=== PATIENT | female | born 1945 | race Caucasian/White ===

== ENCOUNTER 2018-03-03 10:34 | Inpatient (IN) | payer MEDICARE ==
--- NOTE | 2018-03-03 11:10 | ED Physician Chart ---
ED Chief Complaint/HPI - Patient Information Date Seen:: 03/03/18 Time Seen:: 10:45 Chief Complaint:: Leg Pain History of Present Illness:: onset x 3 days of LE pain, erythema, and swelling; no report of trauma, H/As, S/ T, neck pain, cough, C/P, SOB, Abd. Pain, A/N/V/D/C, fever, chills, or urinary s /s Historian:: Patient, EMS Review:: Nurse's Note Reviewed, Old Chart Reviewed, EMS run form Reviewed ED Review of Systems - Review of Systems General/Constitutional: No fever, No chills, No weight loss, No weakness, No diaphoresis, No edema, No loss of appetite Skin: Skin lesions, Rash, No bruising Head: No headache, No light-headedness Eyes: No loss of vision, No pain, No diplopia ENT: No earache, No nasal drainage, No sore throat, No tinnitus Neck: No neck pain, No swelling, No thyromegaly, No stiffness, No mass noted Cardio Vascular: No chest pain, No palpitations, No PND, No orthopnea, No edema Pulmonary: SOB, Cough, No sputum, Wheezing GI: No nausea, No vomiting, No diarrhea, No pain, No melena, No hematochezia, No constipation, No hematemesis G/U: No dysuria, No frequency, No hematuria, No nacturia Cytopathologist: No vaginal discharge, No abnormal vaginal bleed, No contraction Musculoskeletal: No bone or joint pain, No back pain, No muscle pain Endocrine: No polyuria, No polydipsia Psychiatric: No prior psych history, No depression, No anxiety, No suicidal ideation, No homicidal ideation, No auditory hallucination, No visual hallucination Hematopoietic: No bruising, No lymphadenopathy Allergic/Immuno: No urticaria, No angioedema Neurological: No syncope, No focal symptoms, No weakness, No paresthesia, No headache, No seizure, No dizziness, Confusion, No vertigo ED Past Medical History - Past Medical History Obtainable: Yes Past Medical History: HTN, Asthma/COPD, Dyslipidemia, ESRD, Dementia Family History: HTN Social History: Non Smoker, No Alcohol, No Drug Use, Single, Care Facility Surgical History: None Psychiatricy History: Dementia Medication: Reviewed Family Medical History - Family Member Mother History Unknown: Yes ED Physical Exam - Physical Examination General/Constitutional: Awake, Well-developed, well-nourished, Alert, No distress, GCS 15, Non-toxic appearing, Ambulatory Head: Atraumatic Eyes: Lids, conjuctiva normal, PERRL, EOMI Skin: Nl inspection, No rash, No skin lesions, No ecchymosis, Well hydrated, No lymphadenopathy Other Skin comments:: + LE Cellulitis ENMT: External ears, nose nl, Nasal exam nl, Lips, teeth, gums nl Neck: Nontender, Full ROM w/o pain, No JVD, No nuchal rigidity, No bruit, No mass, No stridor Respiratory: Nl effort/Exclusion, Clear to Auscultation, No Wheeze/Rhonchi/Rales Cardio Vascular: RRR, No murmur, gallop, rubs, NL S1 S2 GI: No tenderness/rebounding/guarding, No organomegaly, No hernia, Normal BS's, Nondistended, No mass/bruits, No McBurney tenderness : No CVA tenderness Extremities: No tenderness or effusion, Full ROM, normal strength in all extremities, No edema, Normal digits & nails Neuro/Psych: Alert/oriented, DTR's symmetric, Normal sensory exam, Normal motor strength, Judgement/insight normal, Mood normal, Normal gait, No focal deficits Misc: Normal back, No paraspinal tenderness ED Labs/Radiology/EKG Results - Lab Results Comments:: Reviewed - Radiology Results Comments:: NAD - EKG Interpretations EKG Time:: 11:13 Rate & Rhythm: 68; NSR Comments:: non-specific st-t changes ED Septic Shock - . Is Septic Shock (SBP<90, OR Lactate>4 mmol\L) present?: No ED Reassessment (Disposition) - Reassessment Reassessment Condition:: Improved - Diagnosis Diagnosis:: Dx: Cellulitis; Sepsis; Hypokalemia; Lactic Acidosis; - Aftercare/Follow up Instructions Aftercare/Follow-Up Instructions:: Counseled pt regarding lab results/diagnosis & need follow up, Counseled pt & family regarding lab results/diagnosis & need follow up - Patient Disposition Discharge/Transfer:: Acute Care w/in this hosp Accepting Physician:: Dr. Goldberg Time Called:: 1245 Time Responded:: 12:45 Admitted to:: Telemetry Spoke to:: Dr. Goldberg Admitting Medical Physician:: Dr. Goldberg Condition at Disposition:: Stable, Improved
[2018-03-03] MEDS ORDERED: cefTRIAXone 1 GM in Sodium Chloride 0.9% 50 ML IV ONE (11:12)
[2018-03-03 11:21] LABS: HEMATOCRIT 29.7 % (41.0-60); HEMOGLOBIN 9.9 gm/dL (12-16); MEAN CELL VOLUME 82.3 fl (81-100); MEAN CORPUSCULAR HEMOGLOBIN 27.4 pg (27.0-31.0); MEAN CORPUSCULAR HGB CONC 33.3 pg (28.0-36.0); MEAN PLATELET VOLUME 7.8 fl; PLATELET COUNT 363 Th/cmm (150-400); RED BLOOD COUNT 3.61 Mil/cmm (3.80-5.20); RED CELL DISTRIBUTION WIDTH 14.6 % (11.5-20.0)
[2018-03-03 11:39] LABS: ALB/GLOB RATIO 0.9 (1.0-1.8); ALBUMIN 3.7 gm/dL (3.7-5.3); ALKALINE PHOSPHATASE 126 U/L (34-104); ANION GAP 17.1 (7.0-16.0); BILIRUBIN,TOTAL 0.3 mg/dL (0.3-1.0); BUN - UREA NITROGEN 57 mg/dL (7-25); CALCIUM SERUM 9.3 mg/dL (8.6-10.3); CARBON DIOXIDE 29.6 mEq/L (21.0-31.0); CHLORIDE 91 mEq/L (98-107); CREATININE - SERUM 2.3 mg/dL (0.6-1.2); CREATININE KINASE 60 U/L (30-223); GLUCOSE 93 mg/dL (70-105); SGOT 14 U/L (13-39); SGPT/ALT 10 U/L (7-52); SODIUM SERUM 135 mEq/L (136-145); TOTAL PROTEIN,SERUM 7.7 gm/dL (6.0-8.3)
--- NOTE | 2018-03-03 11:49 | Diagnostic Imaging Report ---
CHEST X-RAY: AP view INDICATION: pain COMPARISON: None FINDINGS: Increased interstitial lung markings are seen particularly of the lung bases. No focal consolidation or effusions. Cardiomegaly is noted with atherosclerosis. Degenerative changes of the spine are noted. IMPRESSION: Increased interstitial lung markings, particularly of the lung bases. There is probable atelectasis of the lung bases. Faint infiltrate of the left lung base is considered less likely, however, correlation is to be made clinically. Cardiomegaly and atherosclerotic vascular disease.
[2018-03-03 11:50] LABS: POTASSIUM SERUM 2.7 mEq/L (3.5-5.1)
[2018-03-03] MEDS ORDERED: Potassium Chloride 20 mEq ER Tab PO ONE ×4 (11:53→17:00)
[2018-03-03 12:01] LABS: INR 0.9 (0.5-1.4); PROTHROMBIN TIME (TEST) 9.4 SECONDS (9.5-11.5)
[2018-03-03 12:13] LABS: BAND NEUTROPHILE 0 % (0-10); EOSINOPHIL 3 % (0-5); LYMPHOCYTE 6 % (20-50); MONOCYTE 4 % (2-10); NEUTROPHILS 87 % (40-80)
--- NOTE | 2018-03-03 12:44 | Diagnostic Imaging Report ---
Bilateral lower extremity DVT study HISTORY: Pain COMPARISON: None Technique: Longitudinal and transverse sonographic images of the bilateral lower extremity veins were obtained with doppler analysis. FINDINGS: There is normal compressibility, augmentation and phasicity of the bilateral common femoral, superficial femoral, popliteal, and posterior tibial veins. The bilateral peroneal veins are not visualized. No thrombus is visualized. Bilateral calf edema is noted. IMPRESSION: The bilateral peroneal veins are not visualized. No evidence of thrombus within the bilateral lower extremity veins. Bilateral calf edema.
[2018-03-03 12:56] LABS: TROP I 0.01 ng/mL (0.01-0.05)
[2018-03-03] MEDS ORDERED: Sodium Chloride 0.9% 1,000 ML IV ONE (12:57)
[2018-03-03] MEDS ORDERED: ACETAMINOPHEN PO PRN (15:50)
[2018-03-03 16:06] LABS: URINE SOURCE MIDSTREAM
[2018-03-03 16:08] LABS: URINE BILIRUBIN NEGATIVE (NEGATIVE); URINE BLOOD NEGATIVE (NEGATIVE); URINE GLUCOSE (UA) NEGATIVE (NEGATIVE); URINE KETONE NEGATIVE (NEGATIVE); URINE LEUKOCYTE ESTERASE NEGATIVE (NEGATIVE); URINE MICROSCOPIC INDICATED? YES; URINE NITRATE POSITIVE (NEGATIVE); URINE PROTEIN NEGATIVE (NEGATIVE); URINE UROBILINOGEN 0.2 E.U./dL (0.2 - 1.0)
[2018-03-03 16:22] LABS: URINE CLARITY HAZY (CLEAR); URINE COLOR YELLOW
[2018-03-03 16:45] LABS: URINE BACTERIA 3+ /hpf (NONE SEEN); URINE EPITHELIAL CELLS FEW /lpf (FEW); URINE RBC 0-2 /hpf (0-5)
[2018-03-03] MEDS: Acetaminophen 500 MG TAB PO PRN (17:07)
--- NOTE | 2018-03-03 17:09 | History & Physical ---
ADMIT DATE: 03/03/2018 HISTORY OF PRESENT ILLNESS: The patient is a 72-year-old female patient. The patient came to the Emergency Room complaining of leg pain for the last 3 days complaining of erythema and swelling in both legs, found to have cellulitis, was admitted. The patient complained of no cough, no fever, no chills, no rigors. REVIEW OF SYSTEMS: Otherwise, negative. PAST MEDICAL HISTORY: Asthma, history of hypertension, hyperlipidemia, end-stage renal disease, and dementia. PHYSICAL EXAMINATION: GENERAL: Awake, alert, oriented, not in acute distress. VITAL SIGNS: Noted. HEAD: Normal. ENT: Normal. NECK: Supple, nontender. LUNGS: Clear. CARDIOVASCULAR SYSTEM: S1, S2 heard. ABDOMEN: Soft. EXTREMITIES: Left lower extremity edema, swelling, erythema was noted. CENTRAL NERVOUS SYSTEM: Grossly normal. LABORATORY DATA: EKG normal sinus rhythm, no acute changes. Her potassium was very low at 2.7. DIAGNOSES: Severe hypokalemia, cellulitis, sepsis, lactic acidosis, history of hypertension, history of asthma, chronic obstructive pulmonary disease, hyperlipidemia, chronic renal failure, dementia, was made. The patient is being admitted. WBC was 13.5, potassium was 2.7. Lactic acid was 2.0, BUN and creatinine was 57 and 2.3 and the patient again admitted for cellulitis, acute on chronic renal failure, sepsis, lactic acidosis, history of hypertension, history of hyperlipidemia, and history of dementia. [facility]# [id number]
[2018-03-03] MEDS: cefTRIAXone 1 GM in Sodium Chloride 0.9% 50 ML IV SCH (17:13)
[2018-03-03 18:04] VITALS: BP 110/45
[2018-03-03] MEDS: Morphine Sulfate 2 mg/mL 1mL Syr IVP PRN (20:15)
[2018-03-03] MEDS ORDERED: D5-0.45NS 1,000 ML IV SCH (22:35)
[2018-03-04] MEDS: Morphine Sulfate 2 mg/mL 1mL Syr IVP PRN ×4 (01:04→21:26)
--- NOTE | 2018-03-04 04:33 | Consultation ---
DATE OF CONSULTATION: 03/03/2018 INFECTIOUS DISEASE CONSULTATION REFERRING PHYSICIAN: Dr. Goldberg. REASON FOR CONSULTATION: Bilateral leg cellulitis. HISTORY OF PRESENT ILLNESS: The patient is 72-year-old female with a past medical history of obesity, hypertension, COPD, asthma, dyslipidemia, ESRD, and dementia, presented to the ER for erythema, swelling, and dry skin of both lower extremities, worse on the left side with some superficial ulceration with a scab formation for last 3 days. The patient denies any fever or chills. The patient denies any history of DVT. On initial evaluation, the patient's temperature was 97.5 degree Fahrenheit and WBC count was 13,000. ID consult was called for further antibiotic management. Meanwhile, the patient was started on Rocephin. PAST MEDICAL HISTORY: As mentioned above. Obesity, hypertension, asthma, COPD, dyslipidemia, CKD, and dementia. ALLERGIES: NKDA. MEDICATIONS: As per medication reconciliation sheet. Antibiotic welsh, the patient is receiving Rocephin. SOCIAL HISTORY: The patient lives in a nursing facility, is single. No history of smoking, alcohol, or drug use. PAST SURGICAL HISTORY: None. PSYCHIATRIC HISTORY: Dementia. REVIEW OF SYSTEMS: GENERAL: The patient denies any fever or chills. The patient denies any generalized weakness or diaphoresis. HEENT: The patient denies any diplopia, photophobia, sore throat, or congestion. RESPIRATORY: The patient denies any cough or shortness of breath. CARDIOVASCULAR: No chest pain or palpitation. GASTROINTESTINAL: No nausea, no vomiting, no diarrhea, or constipation. GENITOURINARY: No dysuria. NEUROLOGIC: No headache, no dizziness, no focal weakness. MUSCULOSKELETAL: The patient complains of bilateral lower extremity pains. SKIN: The patient has redness and superficial ulceration and scab formation of both lower extremities, worse on the left side. PHYSICAL EXAMINATION: GENERAL: The patient is obese, not in acute distress with a BMI of 44.7 kg. VITAL SIGNS: Temperature is 98.6, pulse 83, respiration 18, and blood pressure 110/51. HEENT: Head is normocephalic, atraumatic. Oral cavity moist, pink tongue. Eyes: No pallor, no icterus. PERRLA, EOMI. NECK: Supple, no JVD, no carotid bruit. Trachea in midline. CHEST: Equal breath sounds. No crackles or wheezing. HEART: S1, S2 within normal limit. Regular rhythm. No murmur, no gallop. ABDOMEN: Soft, nontender, nondistended. Bowel sounds present. EXTREMITIES: No cyanosis, no clubbing. The patient has dry skin of both lower extremities, ulceration with a scab formation of left lower extremity. The patient also has tenderness and erythema on both legs. No postnasal discharge. CENTRAL NERVOUS SYSTEM: Alert, awake, and oriented x 3. No focal weakness. LABORATORY DATA: Current lab shows WBC count is 13,000, hemoglobin is 9.9, hematocrit 29.7, platelets 363,000, neutrophils 87%. Sodium is 135, potassium 2.7, chloride 91, bicarbonate is 29.6, BUN is 57, creatinine 2.3, glucose is 93. Lactic acid was 2.2. Urinalysis showed positive nitrite and 3+ bacteria, wbc's 2-5. Bilateral leg ultrasound was negative for any DVT. Chest ____ increased interstitial markings particularly of the lung bases. There is atelectasis, faint infiltrate of the left lung base is considered less likely. IMPRESSION: 1. Right leg cellulitis. 2. Left leg cellulitis. 3. Left leg wound. 4. Dry skin, dermatitis. 5.. Leukocytosis. 6. Urinary tract infection. 7. Hypokalemia. 8. Chronic kidney disease, stage 4. 9. Obesity, she has sleep apnea. 10. Chronic obstructive pulmonary disease, asthma. 11. Hypertension. 12. Dyslipidemia. 13. Dementia. 14. Anemia. 15. Lymphedema of both lower extremities. RECOMMENDATION AND PLAN: We will continue Rocephin at this time. Apply Lac-Hydrin ointment to both lower extremities. Thank you, Dr. Goldberg, for involving me in taking care of this patient. JOB# [id number]
[2018-03-04 05:33] LABS: % BASOPHILS 0.7 % (0.0-2.0); BASOPHILE ABSOLUTE 0.1 Th/cumm (0-0.2); RED BLOOD COUNT 3.49 Mil/cmm (3.80-5.20)
[2018-03-04 05:40] LABS: % EOSINOPHILS 4.9 % (0.0-5.0); % LYMPHOCYTES 5.5 % (20.0-50.0); % MONOCYTES 5.1 % (2.0-10.0); % NEUTROPHILS 83.8 % (40.0-80.0); EOSINOPHILE ABSOLUTE 0.5 Th/cmm (0.1-0.4); HEMATOCRIT 28.6 % (41.0-60); HEMOGLOBIN 9.6 gm/dL (12-16); LYMPHOCYTE ABSOLUTE 0.6 Th/cmm (1.5-3.0); MEAN CORPUSCULAR HEMOGLOBIN 27.6 pg (27.0-31.0); MEAN CORPUSCULAR HGB CONC 33.6 pg (28.0-36.0); MONOCYTE ABSOLUTE 0.6 Th/cmm (0.3-1.0); NEUTROPHILE ABSOLUTE 9.4 Th/cmm (1.8-8.0); PLATELET COUNT 339 Th/cmm (150-400); RED CELL DISTRIBUTION WIDTH 14.8 % (11.5-20.0); WHITE BLOOD COUNT 11.2 Th/cmm (4.8-10.8)
[2018-03-04 06:04] LABS: ANION GAP 14.9 (7.0-16.0); BUN - UREA NITROGEN 55 mg/dL (7-25); CALCIUM SERUM 9.1 mg/dL (8.6-10.3); CARBON DIOXIDE 29.1 mEq/L (21.0-31.0); CHLORIDE 96 mEq/L (98-107); CREATININE - SERUM 2.2 mg/dL (0.6-1.2); GLUCOSE 115 mg/dL (70-105); SODIUM SERUM 137 mEq/L (136-145)
[2018-03-04] MEDS ORDERED: Potassium Chloride 20 mEq ER Tab PO ONE (06:33)
[2018-03-04 07:22] LABS: EOSINOPHIL 7 % (0-5); LYMPHOCYTE 3 % (20-50); MONOCYTE 8 % (2-10); NEUTROPHILS 82 % (40-80); PLATELET ESTIMATE ADEQUATE (NORMAL)
[2018-03-04] MEDS ORDERED: Influenza Vaccine (65 yr & older) 0.5 ml Syr IM ONE (09:00)
[2018-03-04] MEDS: Diltiazem CD 120 mg 24H PO SCH (09:01)
--- NOTE | 2018-03-04 11:25 | Internal Medicine Prog Note ---
Internal Medicine Subjective - Subjective Service Date: 03/04/18 Patient seen and examined:: with staff Patient is:: awake, verbal Per staff patient has:: tolerating meds Internal Medicine Objective - Results Result Diagrams: 03/04/18 05:05 03/04/18 05:05 Recent Labs: Laboratory Last Values WBC 11.2 Th/cmm (4.8-10.8) H 03/04/18 05:05 RBC 3.49 Mil/cmm (3.80-5.20) L 03/04/18 05:05 Hgb 9.6 gm/dL (12-16) L 03/04/18 05:05 Hct 28.6 % (41.0-60) L 03/04/18 05:05 MCV 82.0 fl (81-100) 03/04/18 05:05 MCH 27.6 pg (27.0-31.0) 03/04/18 05:05 MCHC Differential 33.6 pg (28.0-36.0) 03/04/18 05:05 RDW 14.8 % (11.5-20.0) 03/04/18 05:05 Plt Count 339 Th/cmm (150-400) 03/04/18 05:05 MPV 8.0 fl 03/04/18 05:05 Add Manual Diff YES 03/03/18 11:10 Neutrophils % 83.8 % (40.0-80.0) H 03/04/18 05:05 Band Neutrophils % 0 % (0-10) 03/03/18 11:10 Lymphocytes % 5.5 % (20.0-50.0) L 03/04/18 05:05 Monocytes % 5.1 % (2.0-10.0) 03/04/18 05:05 Eosinophils % 4.9 % (0.0-5.0) 03/04/18 05:05 Basophils % 0.7 % (0.0-2.0) 03/04/18 05:05 Neutrophils (Manual) 82 % (40-80) H 03/04/18 05:05 Lymphocytes 3 % (20-50) L 03/04/18 05:05 Monocytes 8 % (2-10) 03/04/18 05:05 Eosinophils 7 % (0-5) H 03/04/18 05:05 Platelet Estimate ADEQUATE (NORMAL) 03/04/18 05:05 PT 9.4 SECONDS (9.5-11.5) L 03/03/18 11:10 INR 0.90 (0.5-1.4) 03/03/18 11:10 PTT (Actin FS) 28.4 SECONDS (26.0-38.0) 03/03/18 11:10 Sodium 137 mEq/L (136-145) 03/04/18 05:05 Potassium 3.0 mEq/L (3.5-5.1) L 03/04/18 05:05 Chloride 96 mEq/L (98-107) L 03/04/18 05:05 Carbon Dioxide 29.1 mEq/L (21.0-31.0) 03/04/18 05:05 Anion Gap 14.9 (7.0-16.0) 03/04/18 05:05 BUN 55 mg/dL (7-25) H 03/04/18 05:05 Creatinine 2.2 mg/dL (0.6-1.2) H 03/04/18 05:05 Est GFR ( Amer) TNP 03/04/18 05:05 Est GFR (Non-Af Amer) TNP 03/04/18 05:05 BUN/Creatinine Ratio 25.0 03/04/18 05:05 Glucose 115 mg/dL (70-105) H 03/04/18 05:05 Whole Bld Lactic Acid 1.05 mmol/L (0.60-1.99) 03/03/18 13:20 Calcium 9.1 mg/dL (8.6-10.3) 03/04/18 05:05 Total Bilirubin 0.3 mg/dL (0.3-1.0) 03/03/18 11:10 AST 14 U/L (13-39) 03/03/18 11:10 ALT 10 U/L (7-52) 03/03/18 11:10 Alkaline Phosphatase 126 U/L (34-104) H 03/03/18 11:10 Creatine Kinase 60 U/L (30-223) 03/03/18 11:10 Troponin I 0.01 ng/mL (0.01-0.05) 03/03/18 11:10 Total Protein 7.7 gm/dL (6.0-8.3) 03/03/18 11:10 Albumin 3.7 gm/dL (3.7-5.3) 03/03/18 11:10 Globulin 4.0 gm/dL 03/03/18 11:10 Albumin/Globulin Ratio 0.9 (1.0-1.8) L 03/03/18 11:10 Urine Source MIDSTREAM 03/03/18 16:00 Urine Color YELLOW 03/03/18 16:00 Urine Clarity HAZY (CLEAR) 03/03/18 16:00 Urine pH 6.0 (4.6 - 8.0) 03/03/18 16:00 Ur Specific [place] 1.015 (1.005-1.030) 03/03/18 16:00 Urine Protein NEGATIVE mg/dL (NEGATIVE) 03/03/18 16:00 Urine Glucose (UA) NEGATIVE mg/dL (NEGATIVE) 03/03/18 16:00 Urine Ketones NEGATIVE mg/dL (NEGATIVE) 03/03/18 16:00 Urine Blood NEGATIVE (NEGATIVE) 03/03/18 16:00 Urine Nitrate POSITIVE (NEGATIVE) H 03/03/18 16:00 Urine Bilirubin NEGATIVE (NEGATIVE) 03/03/18 16:00 Urine Urobilinogen 0.2 E.U./dL (0.2 - 1.0) 03/03/18 16:00 Ur Leukocyte Esterase NEGATIVE (NEGATIVE) 03/03/18 16:00 Urine RBC 0-2 /hpf (0-5) 03/03/18 16:00 Urine WBC 2-5 /hpf (0-5) 03/03/18 16:00 Ur Epithelial Cells FEW /lpf (FEW) 03/03/18 16:00 Urine Bacteria 3+ /hpf (NONE SEEN) H 03/03/18 16:00 - Physical Exam Vitals and I&O: Vital Signs Temp 97.5 F 03/04/18 08:00 Pulse 99 03/04/18 09:01 Resp 20 03/04/18 08:00 BP 115/52 03/04/18 08:00 Pulse Ox 100 03/04/18 08:00 Intake & Output 03/03/18 03/04/18 03/04/18 18:59 06:59 18:59 Intake Total 300 400 Balance 300 400 Weight (lbs) 229 lb 229 lb 229 lb Intake: Oral 300 400 Other: # Voids 2 2 3 # Bowel Movements 1 0 Weight Source Bedscale Bedscale Bedscale Active Medications: Current Medications Acetaminophen (Tylenol Extra Strength) 1,000 mg PO Q6HR PRN PRN Reason: Pain or Fever >101 Stop: 05/02/18 15:49 Last Admin: 03/03/18 17:07 Dose: 1,000 mg Diltiazem HCl (Cardizem Cd) 240 mg PO DAILY [facility] Stop: 05/03/18 08:59 Last Admin: 03/04/18 09:01 Dose: 240 mg Ceftriaxone Sodium 1 gm/ (Sodium Chloride) 50 mls @ 100 mls/hr IV Q24HR [facility] Stop: 05/02/18 16:59 Last Admin: 03/03/18 17:13 Dose: Not Given Dextrose/Sodium Chloride (D5-0.45ns) 1,000 mls @ 75 mls/hr IV .[id number] [facility] Stop: 05/02/18 22:34 Last Admin: 03/03/18 23:18 Dose: 75 mls/hr Lactic Acid (Lac-Hydrin Cream) 1 appl TP BID [facility] Stop: 05/03/18 08:59 Morphine Sulfate (Morphine) 1 mg IVP Q4HR PRN PRN Reason: Pain (Severe) 8-10 Stop: 05/02/18 17:32 Last Admin: 03/04/18 06:52 Dose: 1 mg General: weak, congested, alert HEENT: NC/AT Neck: Supple Lungs: rales Cardiovascular: RRR, Normal S1, Normal S2, without murmur Abdomen: soft, non-tender, non-distended Extremities: excoriation, other (ble nonpitting edema with redness and warmth) Internal Medicine Assmt/Plan - Assessment Assessment: severe hypokalemia ble cellulitis sepsis htn asthma copd hdl chronic renal failure dementia - Plan Plan: keep IVF tko as patient feels sob monitor electrolytes closely continue ivabx as per id continue current plan of care
[2018-03-04] MEDS ORDERED: D5 IV SCH (11:30)
[2018-03-04] MEDS ORDERED: [UNRECOGNIZED DRUG - OTHER] IV SCH (11:30)
[2018-03-04] MEDS: Ammonium Lactate Cream 140 gm Tube TP SCH ×2 (11:55→17:30)
[2018-03-04] MEDS ORDERED: D5-0.45NS 1,000 ML IV SCH (12:00)
[2018-03-04] MEDS: Venelex 60gm Tube TP SCH (13:03)
--- NOTE | 2018-03-04 14:35 | Infectious Disease Prog Note ---
Infectious Disease Subjective - Review of Systems Service Date: 03/04/18 Subjective: There is no new change, no fever, Infectious Disease Objective - Results Result Diagrams: 03/04/18 05:05 03/04/18 05:05 Recent Labs: Laboratory Last Values WBC 11.2 Th/cmm (4.8-10.8) H 03/04/18 05:05 RBC 3.49 Mil/cmm (3.80-5.20) L 03/04/18 05:05 Hgb 9.6 gm/dL (12-16) L 03/04/18 05:05 Hct 28.6 % (41.0-60) L 03/04/18 05:05 MCV 82.0 fl (81-100) 03/04/18 05:05 MCH 27.6 pg (27.0-31.0) 03/04/18 05:05 MCHC Differential 33.6 pg (28.0-36.0) 03/04/18 05:05 RDW 14.8 % (11.5-20.0) 03/04/18 05:05 Plt Count 339 Th/cmm (150-400) 03/04/18 05:05 MPV 8.0 fl 03/04/18 05:05 Add Manual Diff YES 03/03/18 11:10 Neutrophils % 83.8 % (40.0-80.0) H 03/04/18 05:05 Band Neutrophils % 0 % (0-10) 03/03/18 11:10 Lymphocytes % 5.5 % (20.0-50.0) L 03/04/18 05:05 Monocytes % 5.1 % (2.0-10.0) 03/04/18 05:05 Eosinophils % 4.9 % (0.0-5.0) 03/04/18 05:05 Basophils % 0.7 % (0.0-2.0) 03/04/18 05:05 Neutrophils (Manual) 82 % (40-80) H 03/04/18 05:05 Lymphocytes 3 % (20-50) L 03/04/18 05:05 Monocytes 8 % (2-10) 03/04/18 05:05 Eosinophils 7 % (0-5) H 03/04/18 05:05 Platelet Estimate ADEQUATE (NORMAL) 03/04/18 05:05 PT 9.4 SECONDS (9.5-11.5) L 03/03/18 11:10 INR 0.90 (0.5-1.4) 03/03/18 11:10 PTT (Actin FS) 28.4 SECONDS (26.0-38.0) 03/03/18 11:10 Sodium 137 mEq/L (136-145) 03/04/18 05:05 Potassium 3.0 mEq/L (3.5-5.1) L 03/04/18 05:05 Chloride 96 mEq/L (98-107) L 03/04/18 05:05 Carbon Dioxide 29.1 mEq/L (21.0-31.0) 03/04/18 05:05 Anion Gap 14.9 (7.0-16.0) 03/04/18 05:05 BUN 55 mg/dL (7-25) H 03/04/18 05:05 Creatinine 2.2 mg/dL (0.6-1.2) H 03/04/18 05:05 Est GFR ( Amer) TNP 03/04/18 05:05 Est GFR (Non-Af Amer) TNP 03/04/18 05:05 BUN/Creatinine Ratio 25.0 03/04/18 05:05 Glucose 115 mg/dL (70-105) H 03/04/18 05:05 Whole Bld Lactic Acid 1.05 mmol/L (0.60-1.99) 03/03/18 13:20 Calcium 9.1 mg/dL (8.6-10.3) 03/04/18 05:05 Total Bilirubin 0.3 mg/dL (0.3-1.0) 03/03/18 11:10 AST 14 U/L (13-39) 03/03/18 11:10 ALT 10 U/L (7-52) 03/03/18 11:10 Alkaline Phosphatase 126 U/L (34-104) H 03/03/18 11:10 Creatine Kinase 60 U/L (30-223) 03/03/18 11:10 Troponin I 0.01 ng/mL (0.01-0.05) 03/03/18 11:10 Total Protein 7.7 gm/dL (6.0-8.3) 03/03/18 11:10 Albumin 3.7 gm/dL (3.7-5.3) 03/03/18 11:10 Globulin 4.0 gm/dL 03/03/18 11:10 Albumin/Globulin Ratio 0.9 (1.0-1.8) L 03/03/18 11:10 Urine Source MIDSTREAM 03/03/18 16:00 Urine Color YELLOW 03/03/18 16:00 Urine Clarity HAZY (CLEAR) 03/03/18 16:00 Urine pH 6.0 (4.6 - 8.0) 03/03/18 16:00 Ur Specific [place] 1.015 (1.005-1.030) 03/03/18 16:00 Urine Protein NEGATIVE mg/dL (NEGATIVE) 03/03/18 16:00 Urine Glucose (UA) NEGATIVE mg/dL (NEGATIVE) 03/03/18 16:00 Urine Ketones NEGATIVE mg/dL (NEGATIVE) 03/03/18 16:00 Urine Blood NEGATIVE (NEGATIVE) 03/03/18 16:00 Urine Nitrate POSITIVE (NEGATIVE) H 03/03/18 16:00 Urine Bilirubin NEGATIVE (NEGATIVE) 03/03/18 16:00 Urine Urobilinogen 0.2 E.U./dL (0.2 - 1.0) 03/03/18 16:00 Ur Leukocyte Esterase NEGATIVE (NEGATIVE) 03/03/18 16:00 Urine RBC 0-2 /hpf (0-5) 03/03/18 16:00 Urine WBC 2-5 /hpf (0-5) 03/03/18 16:00 Ur Epithelial Cells FEW /lpf (FEW) 03/03/18 16:00 Urine Bacteria 3+ /hpf (NONE SEEN) H 03/03/18 16:00 - Physical Exam Vitals and I&O: Vital Signs Temp 97.7 F 03/04/18 12:00 Pulse 106 03/04/18 12:00 Resp 20 03/04/18 12:00 BP 106/57 03/04/18 12:00 Pulse Ox 100 03/04/18 12:00 Intake & Output 03/03/18 03/04/18 03/04/18 18:59 06:59 18:59 Intake Total 300 400 Balance 300 400 Weight (lbs) 103.873 kg 103.873 kg 103.873 kg Intake: Oral 300 400 Other: # Voids 2 2 3 # Bowel Movements 1 0 Weight Source Bedscale Bedscale Bedscale Active Medications: Current Medications Acetaminophen (Tylenol Extra Strength) 1,000 mg PO Q6HR PRN PRN Reason: Pain or Fever >101 Stop: 05/02/18 15:49 Last Admin: 03/03/18 17:07 Dose: 1,000 mg Diltiazem HCl (Cardizem Cd) 240 mg PO DAILY [facility] Stop: 05/03/18 08:59 Last Admin: 03/04/18 09:01 Dose: 240 mg Ceftriaxone Sodium 1 gm/ (Sodium Chloride) 50 mls @ 100 mls/hr IV Q24HR [facility] Stop: 05/02/18 16:59 Last Admin: 03/03/18 17:13 Dose: Not Given Dextrose/Sodium Chloride (D5-0.45ns) 1,000 mls @ 10 mls/hr IV .Q24H [facility] Stop: 05/03/18 11:29 Lactic Acid (Lac-Hydrin Cream) 1 appl TP BID [facility] Stop: 05/03/18 08:59 Last Admin: 03/04/18 11:55 Dose: 1 appl Morphine Sulfate (Morphine) 1 mg IVP Q4HR PRN PRN Reason: Pain (Severe) 8-10 Stop: 05/02/18 17:32 Last Admin: 03/04/18 11:55 Dose: 1 mg General: no acute distress, well developed, well nourished HEENT: atraumatic, normocephalic, PERRLA Neck: supple, no thyromegaly Cardiovascular: S1S2, regular Lungs: clear to auscultation bilaterally, clear to percussion Abdomen: soft, no tender, no distended, no mass Extremities: edema, other (erythema and tenderness of the legs), no cyanosis, no clubbing Neurological: no awake, no alert Skin: intact Infectious Disease Assmt/Plan - Assessment Assessment: 1. Right leg cellulitis. 2. Left leg cellulitis. 3. Left leg wound. 4. Dry skin, dermatitis. 5.. Leukocytosis. 6. Urinary tract infection. 7. Hypokalemia. 8. Chronic kidney disease, stage 4. 9. Obesity, she has sleep apnea. 10. Chronic obstructive pulmonary disease, asthma. 11. Hypertension. 12. Dyslipidemia. 13. Dementia. 14. Anemia. 15. Lymphedema of both lower extremities. - Plan Plan: continue Rocephin at this time. Apply Lac-Hydrin ointment to both lower extremities.
[2018-03-04] MEDS: Acetaminophen 500 MG TAB PO PRN (17:29)
[2018-03-04] MEDS: cefTRIAXone 1 GM in Sodium Chloride 0.9% 50 ML IV SCH (18:42)
[2018-03-05] MEDS: Morphine Sulfate 2 mg/mL 1mL Syr IVP PRN ×4 (01:06→21:11)
[2018-03-05] MEDS: Venelex 60gm Tube TP SCH ×2 (01:10→13:04)
[2018-03-05 06:26] LABS: HEMATOCRIT 28.2 % (41.0-60); HEMOGLOBIN 9.4 gm/dL (12-16); MEAN CORPUSCULAR HEMOGLOBIN 27.3 pg (27.0-31.0); MEAN CORPUSCULAR HGB CONC 33.3 pg (28.0-36.0); PLATELET COUNT 309 Th/cmm (150-400); RED BLOOD COUNT 3.44 Mil/cmm (3.80-5.20); RED CELL DISTRIBUTION WIDTH 14.9 % (11.5-20.0)
[2018-03-05 06:53] LABS: ANION GAP 15.4 (7.0-16.0); BUN - UREA NITROGEN 51 mg/dL (7-25); CALCIUM SERUM 9.1 mg/dL (8.6-10.3); CARBON DIOXIDE 25.3 mEq/L (21.0-31.0); CHLORIDE 98 mEq/L (98-107); CREATININE - SERUM 2.1 mg/dL (0.6-1.2); GLUCOSE 128 mg/dL (70-105); POTASSIUM SERUM 3.7 mEq/L (3.5-5.1); SODIUM SERUM 135 mEq/L (136-145)
[2018-03-05 06:55] LABS: WHITE BLOOD COUNT 16.4 Th/cmm (4.8-10.8)
[2018-03-05 07:09] LABS: BAND NEUTROPHILE 1 % (0-10); BASOPHIL 0 % (0-3); EOSINOPHIL 6 % (0-5); LYMPHOCYTE 7 % (20-50); MONOCYTE 4 % (2-10); NEUTROPHILS 82 % (40-80)
[2018-03-05] MEDS: Diltiazem CD 120 mg 24H PO SCH (08:40)
--- NOTE | 2018-03-05 12:36 | Diagnostic Imaging Report ---
Bilateral lower extremity Doppler arterial ultrasound exam HISTORY: Swelling, cellulitis Sonographic sector images were obtained through the arterial systems of both legs. Associated Doppler data was obtained. The exam of the right leg demonstrates biphasic waveforms within the common femoral and superficial femoral arteries. Abnormal monophasic waveforms are noted within the right popliteal, anterior tibial, posterior tibial, and dorsalis pedis arteries. Elevated velocities noted throughout the arterial system. There is a decrease in the ankle-brachial index (0.89). Sonographic images demonstrate moderate to severe diffuse atherosclerotic changes. The left leg demonstrates abnormal monophasic waveforms throughout the arterial system. Generalized increase in velocities noted throughout the arterial system. The ankle-brachial index could not be obtained due to patient body habitus and leg swelling. Sonographic images demonstrate moderate to severe diffuse at this chronic changes. IMPRESSION: 1. Evidence of bilateral moderate to severe atherosclerotic changes. No focal occlusion is seen. If indicated, a CT angiographic study would provide additional detail.
[2018-03-05] MEDS: Ammonium Lactate Cream 140 gm Tube TP SCH ×2 (13:01→17:00)
--- NOTE | 2018-03-05 15:30 | Internal Medicine Prog Note ---
Internal Medicine Subjective - Subjective Patient seen and examined:: chart reviewed Patient is:: awake, verbal Patient Complaints of:: congestion Per staff patient has:: tolerating meds Internal Medicine Objective - Results Result Diagrams: 03/05/18 06:20 03/05/18 06:20 Recent Labs: Laboratory Last Values WBC 16.4 Th/cmm (4.8-10.8) H 03/05/18 06:20 RBC 3.44 Mil/cmm (3.80-5.20) L 03/05/18 06:20 Hgb 9.4 gm/dL (12-16) L 03/05/18 06:20 Hct 28.2 % (41.0-60) L 03/05/18 06:20 MCV 82.0 fl (81-100) 03/05/18 06:20 MCH 27.3 pg (27.0-31.0) 03/05/18 06:20 MCHC Differential 33.3 pg (28.0-36.0) 03/05/18 06:20 RDW 14.9 % (11.5-20.0) 03/05/18 06:20 Plt Count 309 Th/cmm (150-400) 03/05/18 06:20 MPV 8.0 fl 03/05/18 06:20 Add Manual Diff YES 03/05/18 06:20 Neutrophils % 83.8 % (40.0-80.0) H 03/04/18 05:05 Band Neutrophils % 1 % (0-10) 03/05/18 06:20 Lymphocytes % 5.5 % (20.0-50.0) L 03/04/18 05:05 Monocytes % 5.1 % (2.0-10.0) 03/04/18 05:05 Eosinophils % 4.9 % (0.0-5.0) 03/04/18 05:05 Basophils % 0.7 % (0.0-2.0) 03/04/18 05:05 Neutrophils (Manual) 82 % (40-80) H 03/05/18 06:20 Lymphocytes 7 % (20-50) L 03/05/18 06:20 Monocytes 4 % (2-10) 03/05/18 06:20 Eosinophils 6 % (0-5) H 03/05/18 06:20 Basophils 0 % (0-3) 03/05/18 06:20 Platelet Estimate ADEQUATE (NORMAL) 03/04/18 05:05 PT 9.4 SECONDS (9.5-11.5) L 03/03/18 11:10 INR 0.90 (0.5-1.4) 03/03/18 11:10 PTT (Actin FS) 28.4 SECONDS (26.0-38.0) 03/03/18 11:10 Sodium 135 mEq/L (136-145) L 03/05/18 06:20 Potassium 3.7 mEq/L (3.5-5.1) 03/05/18 06:20 Chloride 98 mEq/L (98-107) 03/05/18 06:20 Carbon Dioxide 25.3 mEq/L (21.0-31.0) 03/05/18 06:20 Anion Gap 15.4 (7.0-16.0) 03/05/18 06:20 BUN 51 mg/dL (7-25) H 03/05/18 06:20 Creatinine 2.1 mg/dL (0.6-1.2) H 03/05/18 06:20 Est GFR ( Amer) TNP 03/05/18 06:20 Est GFR (Non-Af Amer) TNP 03/05/18 06:20 BUN/Creatinine Ratio 24.3 03/05/18 06:20 Glucose 128 mg/dL (70-105) H 03/05/18 06:20 Whole Bld Lactic Acid 1.05 mmol/L (0.60-1.99) 03/03/18 13:20 Calcium 9.1 mg/dL (8.6-10.3) 03/05/18 06:20 Total Bilirubin 0.3 mg/dL (0.3-1.0) 03/03/18 11:10 AST 14 U/L (13-39) 03/03/18 11:10 ALT 10 U/L (7-52) 03/03/18 11:10 Alkaline Phosphatase 126 U/L (34-104) H 03/03/18 11:10 Creatine Kinase 60 U/L (30-223) 03/03/18 11:10 Troponin I 0.01 ng/mL (0.01-0.05) 03/03/18 11:10 Total Protein 7.7 gm/dL (6.0-8.3) 03/03/18 11:10 Albumin 3.7 gm/dL (3.7-5.3) 03/03/18 11:10 Globulin 4.0 gm/dL 03/03/18 11:10 Albumin/Globulin Ratio 0.9 (1.0-1.8) L 03/03/18 11:10 Urine Source MIDSTREAM 03/03/18 16:00 Urine Color YELLOW 03/03/18 16:00 Urine Clarity HAZY (CLEAR) 03/03/18 16:00 Urine pH 6.0 (4.6 - 8.0) 03/03/18 16:00 Ur Specific [place] 1.015 (1.005-1.030) 03/03/18 16:00 Urine Protein NEGATIVE mg/dL (NEGATIVE) 03/03/18 16:00 Urine Glucose (UA) NEGATIVE mg/dL (NEGATIVE) 03/03/18 16:00 Urine Ketones NEGATIVE mg/dL (NEGATIVE) 03/03/18 16:00 Urine Blood NEGATIVE (NEGATIVE) 03/03/18 16:00 Urine Nitrate POSITIVE (NEGATIVE) H 03/03/18 16:00 Urine Bilirubin NEGATIVE (NEGATIVE) 03/03/18 16:00 Urine Urobilinogen 0.2 E.U./dL (0.2 - 1.0) 03/03/18 16:00 Ur Leukocyte Esterase NEGATIVE (NEGATIVE) 03/03/18 16:00 Urine RBC 0-2 /hpf (0-5) 03/03/18 16:00 Urine WBC 2-5 /hpf (0-5) 03/03/18 16:00 Ur Epithelial Cells FEW /lpf (FEW) 03/03/18 16:00 Urine Bacteria 3+ /hpf (NONE SEEN) H 03/03/18 16:00 - Physical Exam Vitals and I&O: Vital Signs Temp 98.2 F 03/05/18 11:43 Pulse 76 03/05/18 11:43 Resp 19 03/05/18 11:43 BP 115/47 03/05/18 11:43 Pulse Ox 97 03/05/18 11:43 Intake & Output 03/04/18 03/05/18 03/05/18 18:59 06:59 18:59 Intake Total 400 1250 Output Total 850 Balance 400 400 Weight (lbs) 103.873 kg 103.873 kg Intake: Oral 400 1250 Output: Urine 850 Other: # Voids 3 3 Weight Source Bedscale Bedscale Active Medications: Current Medications Acetaminophen (Tylenol Extra Strength) 1,000 mg PO Q6HR PRN PRN Reason: Pain or Fever >101 Stop: 05/02/18 15:49 Last Admin: 03/04/18 17:29 Dose: 1,000 mg [place] Oil/[place]izen [place] Balsam/Trypsin (Venelex) 1 appl TP DAILY [facility] Stop: 05/03/18 15:59 Last Admin: 03/05/18 13:04 Dose: 1 appl Diltiazem HCl (Cardizem Cd) 240 mg PO DAILY [facility] Stop: 05/03/18 08:59 Last Admin: 03/05/18 08:40 Dose: 240 mg Ceftriaxone Sodium 1 gm/ (Sodium Chloride) 50 mls @ 100 mls/hr IV Q24HR [facility] Stop: 05/02/18 16:59 Last Admin: 03/04/18 18:42 Dose: Not Given Dextrose/Sodium Chloride (D5-0.45ns) 1,000 mls @ 10 mls/hr IV .Q24H [facility] Stop: 05/03/18 11:29 Lactic Acid (Lac-Hydrin Cream) 1 appl TP BID [facility] Stop: 05/03/18 08:59 Last Admin: 03/05/18 13:01 Dose: 1 appl Morphine Sulfate (Morphine) 1 mg IVP Q4HR PRN PRN Reason: Pain (Severe) 8-10 Stop: 05/02/18 17:32 Last Admin: 03/05/18 11:22 Dose: 1 mg General: weak, congested, alert HEENT: NC/AT Neck: Supple Lungs: rales Cardiovascular: RRR, Normal S1, Normal S2, without murmur Abdomen: soft, non-tender, non-distended Extremities: excoriation, other (ble nonpitting edema with redness and warmth) Internal Medicine Assmt/Plan - Assessment Assessment: severe hypokalemia ble cellulitis sepsis htn asthma copd hdl chronic renal failure dementia - Plan Plan: as per order sheet Nutritional Asmnt/Malnutr-PDOC - Dietary Evaluation Malnutrition Findings (Please click <Entered> for more info): Nutritional Asmnt/Malnutrition Start: 03/04/18 14: 11 Text: Status: Complete Freq: Protocol: Document 11/15/18 14:11 SARAI (Rec: 03/04/18 14:51 [email or web address]) Nutritional Asmnt/Malnutrition Patient General Information Nutritional Screening High Risk Diagnosis cellulitis, sepsis Pertinent Medical Hx/Surgical Hx HTN, asthma/COPD, dyslipidemia , ESRD, dementia Subjective Information Consult received for BLE venous insufficiency ulcers. Pt was eating lunch after receiving treatment from RN at time of visit. Pt's alert/ oriented and states her food is good w/ no specific preferences. Nursing noted PO intake: 75-100%. Current Diet Order/ Nutrition Support regular Pertinent Medications D5-0.45ns, cardizem Cd, morphine Pertinent Labs 03/04: Na 137, K 3.0, Cl 96, BUN 55, Cr 2.2, glucose 115 03/03: Na 135, K 2.7, Cl 91, BUN 57, Cr 2.3, glucose 93 Nutritional Hx/Data Height 1.52 m Height (Calculated Centimeters) 152.4 Current Weight (lbs) 103.873 kg Weight (Calculated Kilograms) 103.9 Weight (Calculated Grams) 571476.7 [place] Body Weight 100 lb Body Mass Index (BMI) 44.7 Weight Status Morbidly Obese GI Symptoms GI Symptoms None Last BM 03/03 Difficult in: None Food Allergies No Skin Integrity/Comment: cellulitis and non-pitting 2+ edema of bilateral lower extremities, tennille 15 Current %PO Good (75-100%) Estimated Nutritional Goals BEE in Kcals: Adj wt of IBW Calories/Kcals/Kg 25-30 (based on adj wt 60 kg) Kcals Calculated 9060-7373 Protein: Adj wt of IBW Protein g/k.0 (based on adj wt 60 kg) monitor renal labs Protein Calculated 60 g Fluid: ml 6203-6211 (1 ml/kcal) Nutritional Problem 1. Problem Problem Altered nutrition related lab values Etiology renal dysfunction, electrolyte imbalance Signs/Symptoms: K 3.0, Cl 96, BUN 55, Cr 2.2 Intervention/Recommendation Comments 1. Continue with regular diet as ordered and limit protein to 60 g per day d/t elevated BUN/Cr and hx of ESRD by reducing portions of meat at all meals by half 2. Consider starting low Na 2 gm diet if edema continues to be present 3. Monitor PO intake, wt, labs and skin integrity 4. F/U as moderate risk in 3-5 days, 03/07- Expected Outcomes/Goals Expected Outcomes/Goals 1. PO intake to continue meeting at least 75% of all meals 2. Wt stability, skin to remain intact, and nutrition related labs to approach normal limits Reviwed by Anay Sena RD
[2018-03-05] MEDS: Acetaminophen 500 MG TAB PO PRN (16:37)
[2018-03-05] MEDS: cefTRIAXone 1 GM in Sodium Chloride 0.9% 50 ML IV SCH (19:09)
[2018-03-06] MEDS: Morphine Sulfate 2 mg/mL 1mL Syr IVP PRN ×4 (02:30→19:52)
--- NOTE | 2018-03-06 02:46 | Infectious Disease Prog Note ---
Infectious Disease Subjective - Review of Systems Service Date: 03/06/18 Subjective: There is no new change, no fever, Infectious Disease Objective - Results Result Diagrams: 03/05/18 06:20 03/05/18 06:20 Recent Labs: Laboratory Last Values WBC 16.4 Th/cmm (4.8-10.8) H 03/05/18 06:20 RBC 3.44 Mil/cmm (3.80-5.20) L 03/05/18 06:20 Hgb 9.4 gm/dL (12-16) L 03/05/18 06:20 Hct 28.2 % (41.0-60) L 03/05/18 06:20 MCV 82.0 fl (81-100) 03/05/18 06:20 MCH 27.3 pg (27.0-31.0) 03/05/18 06:20 MCHC Differential 33.3 pg (28.0-36.0) 03/05/18 06:20 RDW 14.9 % (11.5-20.0) 03/05/18 06:20 Plt Count 309 Th/cmm (150-400) 03/05/18 06:20 MPV 8.0 fl 03/05/18 06:20 Add Manual Diff YES 03/05/18 06:20 Neutrophils % 83.8 % (40.0-80.0) H 03/04/18 05:05 Band Neutrophils % 1 % (0-10) 03/05/18 06:20 Lymphocytes % 5.5 % (20.0-50.0) L 03/04/18 05:05 Monocytes % 5.1 % (2.0-10.0) 03/04/18 05:05 Eosinophils % 4.9 % (0.0-5.0) 03/04/18 05:05 Basophils % 0.7 % (0.0-2.0) 03/04/18 05:05 Neutrophils (Manual) 82 % (40-80) H 03/05/18 06:20 Lymphocytes 7 % (20-50) L 03/05/18 06:20 Monocytes 4 % (2-10) 03/05/18 06:20 Eosinophils 6 % (0-5) H 03/05/18 06:20 Basophils 0 % (0-3) 03/05/18 06:20 Platelet Estimate ADEQUATE (NORMAL) 03/04/18 05:05 PT 9.4 SECONDS (9.5-11.5) L 03/03/18 11:10 INR 0.90 (0.5-1.4) 03/03/18 11:10 PTT (Actin FS) 28.4 SECONDS (26.0-38.0) 03/03/18 11:10 Sodium 135 mEq/L (136-145) L 03/05/18 06:20 Potassium 3.7 mEq/L (3.5-5.1) 03/05/18 06:20 Chloride 98 mEq/L (98-107) 03/05/18 06:20 Carbon Dioxide 25.3 mEq/L (21.0-31.0) 03/05/18 06:20 Anion Gap 15.4 (7.0-16.0) 03/05/18 06:20 BUN 51 mg/dL (7-25) H 03/05/18 06:20 Creatinine 2.1 mg/dL (0.6-1.2) H 03/05/18 06:20 Est GFR ( Amer) TNP 03/05/18 06:20 Est GFR (Non-Af Amer) TNP 03/05/18 06:20 BUN/Creatinine Ratio 24.3 03/05/18 06:20 Glucose 128 mg/dL (70-105) H 03/05/18 06:20 Whole Bld Lactic Acid 1.05 mmol/L (0.60-1.99) 03/03/18 13:20 Calcium 9.1 mg/dL (8.6-10.3) 03/05/18 06:20 Total Bilirubin 0.3 mg/dL (0.3-1.0) 03/03/18 11:10 AST 14 U/L (13-39) 03/03/18 11:10 ALT 10 U/L (7-52) 03/03/18 11:10 Alkaline Phosphatase 126 U/L (34-104) H 03/03/18 11:10 Creatine Kinase 60 U/L (30-223) 03/03/18 11:10 Troponin I 0.01 ng/mL (0.01-0.05) 03/03/18 11:10 Total Protein 7.7 gm/dL (6.0-8.3) 03/03/18 11:10 Albumin 3.7 gm/dL (3.7-5.3) 03/03/18 11:10 Globulin 4.0 gm/dL 03/03/18 11:10 Albumin/Globulin Ratio 0.9 (1.0-1.8) L 03/03/18 11:10 Urine Source MIDSTREAM 03/03/18 16:00 Urine Color YELLOW 03/03/18 16:00 Urine Clarity HAZY (CLEAR) 03/03/18 16:00 Urine pH 6.0 (4.6 - 8.0) 03/03/18 16:00 Ur Specific [place] 1.015 (1.005-1.030) 03/03/18 16:00 Urine Protein NEGATIVE mg/dL (NEGATIVE) 03/03/18 16:00 Urine Glucose (UA) NEGATIVE mg/dL (NEGATIVE) 03/03/18 16:00 Urine Ketones NEGATIVE mg/dL (NEGATIVE) 03/03/18 16:00 Urine Blood NEGATIVE (NEGATIVE) 03/03/18 16:00 Urine Nitrate POSITIVE (NEGATIVE) H 03/03/18 16:00 Urine Bilirubin NEGATIVE (NEGATIVE) 03/03/18 16:00 Urine Urobilinogen 0.2 E.U./dL (0.2 - 1.0) 03/03/18 16:00 Ur Leukocyte Esterase NEGATIVE (NEGATIVE) 03/03/18 16:00 Urine RBC 0-2 /hpf (0-5) 03/03/18 16:00 Urine WBC 2-5 /hpf (0-5) 03/03/18 16:00 Ur Epithelial Cells FEW /lpf (FEW) 03/03/18 16:00 Urine Bacteria 3+ /hpf (NONE SEEN) H 03/03/18 16:00 - Physical Exam Vitals and I&O: Vital Signs Temp 97.6 F 03/06/18 00:00 Pulse 95 03/06/18 00:00 Resp 18 03/06/18 00:00 BP 123/79 03/06/18 00:00 Pulse Ox 98 03/06/18 00:00 Intake & Output 03/05/18 03/05/18 03/06/18 06:59 18:59 06:59 Intake Total 1250 850 Output Total 850 850 Balance 400 0 Weight (lbs) 103.873 kg 103.873 kg Intake: Oral 1250 750 Other 100 Output: Urine 850 850 Other: # Voids 3 4 # Bowel Movements 0 Weight Source Bedscale Bedscale Active Medications: Current Medications Acetaminophen (Tylenol Extra Strength) 1,000 mg PO Q6HR PRN PRN Reason: Pain or Fever >101 Stop: 05/02/18 15:49 Last Admin: 03/05/18 16:37 Dose: 1,000 mg [place] Oil/[place] Balsam/Trypsin (Venelex) 1 appl TP DAILY [facility] Stop: 05/03/18 15:59 Last Admin: 03/05/18 13:04 Dose: 1 appl Diltiazem HCl (Cardizem Cd) 240 mg PO DAILY [facility] Stop: 05/03/18 08:59 Last Admin: 03/05/18 08:40 Dose: 240 mg Ceftriaxone Sodium 1 gm/ (Sodium Chloride) 50 mls @ 100 mls/hr IV Q24HR [facility] Stop: 05/02/18 16:59 Last Admin: 03/05/18 19:09 Dose: 100 mls/hr Dextrose/Sodium Chloride (D5-0.45ns) 1,000 mls @ 10 mls/hr IV .Q24H [facility] Stop: 05/03/18 11:29 Lactic Acid (Lac-Hydrin Cream) 1 appl TP BID [facility] Stop: 05/03/18 08:59 Last Admin: 03/05/18 17:00 Dose: 1 appl Morphine Sulfate (Morphine) 1 mg IVP Q4HR PRN PRN Reason: Pain (Severe) 8-10 Stop: 05/02/18 17:32 Last Admin: 03/06/18 02:30 Dose: 1 mg General: no acute distress, well developed HEENT: atraumatic, normocephalic, PERRLA, EOMI Neck: supple, no thyromegaly Cardiovascular: S1S2, regular Lungs: clear to auscultation bilaterally, clear to percussion Abdomen: soft, no tender, no distended, no mass, no hepatomegaly, no splenomegaly Extremities: other (swelling redness of both legs.), no cyanosis, no clubbing Neurological: awake, alert, oriented Skin: intact Infectious Disease Assmt/Plan - Assessment Assessment: 1. Right leg cellulitis. 2. Left leg cellulitis. 3. Left leg wound. 4. Dry skin, dermatitis. 5.. Leukocytosis. 6. Urinary tract infection. 7. Hypokalemia. 8. Chronic kidney disease, stage 4. 9. Obesity, she has sleep apnea. 10. Chronic obstructive pulmonary disease, asthma. 11. Hypertension. 12. Dyslipidemia. 13. Dementia. 14. Anemia. 15. Lymphedema of both lower extremities. - Plan Plan: continue Rocephin at this time. Apply Lac-Hydrin ointment to both lower extremities. pulm consult. Nutritional Asmnt/Malnutr-PDOC - Dietary Evaluation Malnutrition Findings (Please click <Entered> for more info): Nutritional Asmnt/Malnutrition Start: 03/04/18 14: 11 Text: Status: Complete Freq: Protocol: Document 03/04/18 14:11 SARAI (Rec: 03/04/18 14:51 SARAI [email or web address]) Nutritional Asmnt/Malnutrition Patient General Information Nutritional Screening High Risk Diagnosis cellulitis, sepsis Pertinent Medical Hx/Surgical Hx HTN, asthma/COPD, dyslipidemia , ESRD, dementia Subjective Information Consult received for BLE venous insufficiency ulcers. Pt was eating lunch after receiving treatment from RN at time of visit. Pt's alert/ oriented and states her food is good w/ no specific preferences. Nursing noted PO intake: 75-100%. Current Diet Order/ Nutrition Support regular Pertinent Medications D5-0.45ns, cardizem Cd, morphine Pertinent Labs 03/04: Na 137, K 3.0, Cl 96, BUN 55, Cr 2.2, glucose 115 03/03: Na 135, K 2.7, Cl 91, BUN 57, Cr 2.3, glucose 93 Nutritional Hx/Data Height 1.52 m Height (Calculated Centimeters) 152.4 Current Weight (lbs) 103.873 kg Weight (Calculated Kilograms) 103.9 Weight (Calculated Grams) 796719.7 [place] Body Weight 100 lb Body Mass Index (BMI) 44.7 Weight Status Morbidly Obese GI Symptoms GI Symptoms None Last BM 03/03 Difficult in: None Food Allergies No Skin Integrity/Comment: cellulitis and non-pitting 2+ edema of bilateral lower extremities, tennille 15 Current %PO Good (75-100%) Estimated Nutritional Goals BEE in Kcals: Adj wt of IBW Calories/Kcals/Kg 25-30 (based on adj wt 60 kg) Kcals Calculated 8322-5178 Protein: Adj wt of IBW Protein g/k.0 (based on adj wt 60 kg) monitor renal labs Protein Calculated 60 g Fluid: ml 7195-4661 (1 ml/kcal) Nutritional Problem 1. Problem Problem Altered nutrition related lab values Etiology renal dysfunction, electrolyte imbalance Signs/Symptoms: K 3.0, Cl 96, BUN 55, Cr 2.2 Intervention/Recommendation Comments 1. Continue with regular diet as ordered and limit protein to 60 g per day d/t elevated BUN/Cr and hx of ESRD by reducing portions of meat at all meals by half 2. Consider starting low Na 2 gm diet if edema continues to be present 3. Monitor PO intake, wt, labs and skin integrity 4. F/U as moderate risk in 3-5 days, 03/07- Expected Outcomes/Goals Expected Outcomes/Goals 1. PO intake to continue meeting at least 75% of all meals 2. Wt stability, skin to remain intact, and nutrition related labs to approach normal limits Reviwed by Anay Sena RD
--- NOTE | 2018-03-06 08:41 | Diagnostic Imaging Report ---
Portable chest x-ray HISTORY: Cough Compared with the prior exam of March 03, 2018, there is marked cardiomegaly. Atherosclerotic calcination seen in the aorta. No focal pulmonary processes. No other hilar or mediastinal abnormalities. IMPRESSION: 1. No acute focal pulmonary processes 2. Marked cardiomegaly with atherosclerotic vascular changes
[2018-03-06 08:51] LABS: pH 7.43 (7.35-7.45)
[2018-03-06 08:53] LABS: ALLEN TEST Positive
[2018-03-06] MEDS: Diltiazem CD 120 mg 24H PO SCH (09:05)
[2018-03-06] MEDS: Ammonium Lactate Cream 140 gm Tube TP SCH ×2 (09:07→17:09)
[2018-03-06] MEDS: Venelex 60gm Tube TP SCH (09:07)
[2018-03-06] MEDS: Albuterol/Ipratropium Neb 3 ML AERS HHN SCH ×4 (10:37→23:00)
[2018-03-06] MEDS: cefTRIAXone 1 GM in Sodium Chloride 0.9% 50 ML IV SCH (17:08)
[2018-03-06] MEDS: Budesonide 0.5 Mg/2 mL Ud HHN SCH (19:10)
--- NOTE | 2018-03-06 22:51 | Infectious Disease Prog Note ---
Infectious Disease Subjective - Review of Systems Service Date: 03/06/18 Subjective: There is no new change, no fever, Infectious Disease Objective - Results Result Diagrams: 03/05/18 06:20 03/05/18 06:20 Recent Labs: Laboratory Last Values WBC 16.4 Th/cmm (4.8-10.8) H 03/05/18 06:20 RBC 3.44 Mil/cmm (3.80-5.20) L 03/05/18 06:20 Hgb 9.4 gm/dL (12-16) L 03/05/18 06:20 Hct 28.2 % (41.0-60) L 03/05/18 06:20 MCV 82.0 fl (81-100) 03/05/18 06:20 MCH 27.3 pg (27.0-31.0) 03/05/18 06:20 MCHC Differential 33.3 pg (28.0-36.0) 03/05/18 06:20 RDW 14.9 % (11.5-20.0) 03/05/18 06:20 Plt Count 309 Th/cmm (150-400) 03/05/18 06:20 MPV 8.0 fl 03/05/18 06:20 Add Manual Diff YES 03/05/18 06:20 Neutrophils % 83.8 % (40.0-80.0) H 03/04/18 05:05 Band Neutrophils % 1 % (0-10) 03/05/18 06:20 Lymphocytes % 5.5 % (20.0-50.0) L 03/04/18 05:05 Monocytes % 5.1 % (2.0-10.0) 03/04/18 05:05 Eosinophils % 4.9 % (0.0-5.0) 03/04/18 05:05 Basophils % 0.7 % (0.0-2.0) 03/04/18 05:05 Neutrophils (Manual) 82 % (40-80) H 03/05/18 06:20 Lymphocytes 7 % (20-50) L 03/05/18 06:20 Monocytes 4 % (2-10) 03/05/18 06:20 Eosinophils 6 % (0-5) H 03/05/18 06:20 Basophils 0 % (0-3) 03/05/18 06:20 Platelet Estimate ADEQUATE (NORMAL) 03/04/18 05:05 PT 9.4 SECONDS (9.5-11.5) L 03/03/18 11:10 INR 0.90 (0.5-1.4) 03/03/18 11:10 PTT (Actin FS) 28.4 SECONDS (26.0-38.0) 03/03/18 11:10 Specimen Source Arterial 03/06/18 08:39 Sample Site Left Radial 03/06/18 08:39 pH 7.43 (7.35-7.45) 03/06/18 08:39 pCO2 45.0 mmHg (35.0-45.0) 03/06/18 08:39 pO2 53.0 mmHg (80.0-100.0) L 03/06/18 08:39 HCO3 28.4 mEq/L (20.0-26.0) H 03/06/18 08:39 Base Excess 4.8 mEq/L (-3.0-3.0) H 03/06/18 08:39 O2 Saturation 88.0 % (92.0-100.0) L 03/06/18 08:39 Jordon Test Positive 03/06/18 08:39 Vent Rate NA 03/06/18 08:39 Inspired O2 34% 03/06/18 08:39 Tidal Volume NA 03/06/18 08:39 PEEP NA 03/06/18 08:39 Pressure (ins/psv/peep) NA 03/06/18 08:39 Critical Value HSTEHNO 03/06/18 08:39 Sodium 135 mEq/L (136-145) L 03/05/18 06:20 Potassium 3.7 mEq/L (3.5-5.1) 03/05/18 06:20 Chloride 98 mEq/L (98-107) 03/05/18 06:20 Carbon Dioxide 25.3 mEq/L (21.0-31.0) 03/05/18 06:20 Anion Gap 15.4 (7.0-16.0) 03/05/18 06:20 BUN 51 mg/dL (7-25) H 03/05/18 06:20 Creatinine 2.1 mg/dL (0.6-1.2) H 03/05/18 06:20 Est GFR ( Amer) TNP 03/05/18 06:20 Est GFR (Non-Af Amer) TNP 03/05/18 06:20 BUN/Creatinine Ratio 24.3 03/05/18 06:20 Glucose 128 mg/dL (70-105) H 03/05/18 06:20 Whole Bld Lactic Acid 1.05 mmol/L (0.60-1.99) 03/03/18 13:20 Calcium 9.1 mg/dL (8.6-10.3) 03/05/18 06:20 Total Bilirubin 0.3 mg/dL (0.3-1.0) 03/03/18 11:10 AST 14 U/L (13-39) 03/03/18 11:10 ALT 10 U/L (7-52) 03/03/18 11:10 Alkaline Phosphatase 126 U/L (34-104) H 03/03/18 11:10 Creatine Kinase 60 U/L (30-223) 03/03/18 11:10 Troponin I 0.01 ng/mL (0.01-0.05) 03/03/18 11:10 Total Protein 7.7 gm/dL (6.0-8.3) 03/03/18 11:10 Albumin 3.7 gm/dL (3.7-5.3) 03/03/18 11:10 Globulin 4.0 gm/dL 03/03/18 11:10 Albumin/Globulin Ratio 0.9 (1.0-1.8) L 03/03/18 11:10 Urine Source MIDSTREAM 03/03/18 16:00 Urine Color YELLOW 03/03/18 16:00 Urine Clarity HAZY (CLEAR) 03/03/18 16:00 Urine pH 6.0 (4.6 - 8.0) 03/03/18 16:00 Ur Specific [place] 1.015 (1.005-1.030) 03/03/18 16:00 Urine Protein NEGATIVE mg/dL (NEGATIVE) 03/03/18 16:00 Urine Glucose (UA) NEGATIVE mg/dL (NEGATIVE) 03/03/18 16:00 Urine Ketones NEGATIVE mg/dL (NEGATIVE) 03/03/18 16:00 Urine Blood NEGATIVE (NEGATIVE) 03/03/18 16:00 Urine Nitrate POSITIVE (NEGATIVE) H 03/03/18 16:00 Urine Bilirubin NEGATIVE (NEGATIVE) 03/03/18 16:00 Urine Urobilinogen 0.2 E.U./dL (0.2 - 1.0) 03/03/18 16:00 Ur Leukocyte Esterase NEGATIVE (NEGATIVE) 03/03/18 16:00 Urine RBC 0-2 /hpf (0-5) 03/03/18 16:00 Urine WBC 2-5 /hpf (0-5) 03/03/18 16:00 Ur Epithelial Cells FEW /lpf (FEW) 03/03/18 16:00 Urine Bacteria 3+ /hpf (NONE SEEN) H 03/03/18 16:00 - Physical Exam Vitals and I&O: Vital Signs Temp 99.6 F 03/06/18 20:00 Pulse 131 03/06/18 20:00 Resp 18 03/06/18 20:00 BP 147/42 03/06/18 20:00 Pulse Ox 94 03/06/18 20:00 Intake & Output 03/06/18 03/06/18 03/07/18 06:59 18:59 06:59 Intake Total 250 1850 Balance 250 1850 Weight (lbs) 103.873 kg 103.873 kg Intake: Intake, IV Amount 50 50 cefTRIAXone 1 gm In 50 50 Sodium Chloride 0.9% 50 ml @ 100 mls/hr IV Q24HR [facility] Rx#:[id number] Oral 200 1800 Other: # Voids 3 4 # Bowel Movements 0 0 Weight Source Estimated Bedscale Active Medications: Current Medications Acetaminophen (Tylenol Extra Strength) 1,000 mg PO Q6HR PRN PRN Reason: Pain or Fever >101 Stop: 05/02/18 15:49 Last Admin: 03/05/18 16:37 Dose: 1,000 mg Albuterol/Ipratropium (Duoneb Neb) 3 ml HHN Q4HRT [facility] Stop: 05/05/18 10:59 Last Admin: 03/06/18 19:10 Dose: 3 ml Budesonide (Pulmicort) 0.5 mg HHN BIDRT [facility] Stop: 05/05/18 18:59 Last Admin: 03/06/18 19:10 Dose: 0.5 mg [place] Oil/[place] Balsam/Trypsin (Venelex) 1 appl TP DAILY [facility] Stop: 05/03/18 15:59 Last Admin: 03/06/18 09:07 Dose: 1 appl Diltiazem HCl (Cardizem Cd) 240 mg PO DAILY [facility] Stop: 05/03/18 08:59 Last Admin: 03/06/18 09:05 Dose: Not Given Furosemide (Lasix) 40 mg PO DAILY [facility] Stop: 03/10/18 08:59 Ceftriaxone Sodium 1 gm/ (Sodium Chloride) 50 mls @ 100 mls/hr IV Q24HR [facility] Stop: 05/02/18 16:59 Last Infusion: 03/06/18 17:08 Dose: Infused Dextrose/Sodium Chloride (D5-0.45ns) 1,000 mls @ 10 mls/hr IV .Q24H [facility] Stop: 05/03/18 11:29 Lactic Acid (Lac-Hydrin Cream) 1 appl TP BID [facility] Stop: 05/03/18 08:59 Last Admin: 03/06/18 17:09 Dose: 1 appl Miscellaneous (Vancomycin Iv Per Pharmacy) 1 ea MC PRN [facility] Stop: 05/05/18 02:44 Morphine Sulfate (Morphine) 1 mg IVP Q4HR PRN PRN Reason: Pain (Severe) 8-10 Stop: 05/02/18 17:32 Last Admin: 03/06/18 19:52 Dose: 1 mg General: no acute distress, well developed, well nourished HEENT: atraumatic, normocephalic, PERRLA, EOMI, moist mucous membrane, dry Neck: supple, no thyromegaly Cardiovascular: S1S2, regular Lungs: clear to auscultation bilaterally, clear to percussion Abdomen: soft, no tender Extremities: other (erythema and swelling of the legs), no cyanosis, no clubbing , no edema Neurological: awake, alert, oriented Skin: intact Infectious Disease Assmt/Plan - Assessment Assessment: 1. Right leg cellulitis. 2. Left leg cellulitis. 3. Left leg wound. 4. Dry skin, dermatitis. 5.. Leukocytosis. 6. Urinary tract infection. 7. Hypokalemia. 8. Chronic kidney disease, stage 4. 9. Obesity, she has sleep apnea. 10. Chronic obstructive pulmonary disease, asthma. 11. Hypertension. 12. Dyslipidemia. 13. Dementia. 14. Anemia. 15. Lymphedema of both lower extremities. - Plan Plan: continue vanco IV and Rocephin at this time. Apply Lac-Hydrin ointment to both lower extremities. pulm consult. Nutritional Asmnt/Malnutr-PDOC - Dietary Evaluation Malnutrition Findings (Please click <Entered> for more info): Nutritional Asmnt/Malnutrition Start: 03/04/18 14: 11 Text: Status: Complete Freq: Protocol: Document 03/04/18 14:11 SARAI (Rec: 03/04/18 14:51 SARAI [email or web address]) Nutritional Asmnt/Malnutrition Patient General Information Nutritional Screening High Risk Diagnosis cellulitis, sepsis Pertinent Medical Hx/Surgical Hx HTN, asthma/COPD, dyslipidemia , ESRD, dementia Subjective Information Consult received for BLE venous insufficiency ulcers. Pt was eating lunch after receiving treatment from RN at time of visit. Pt's alert/ oriented and states her food is good w/ no specific preferences. Nursing noted PO intake: 75-100%. Current Diet Order/ Nutrition Support regular Pertinent Medications D5-0.45ns, cardizem Cd, morphine Pertinent Labs 03/04: Na 137, K 3.0, Cl 96, BUN 55, Cr 2.2, glucose 115 03/03: Na 135, K 2.7, Cl 91, BUN 57, Cr 2.3, glucose 93 Nutritional Hx/Data Height 1.52 m Height (Calculated Centimeters) 152.4 Current Weight (lbs) 103.873 kg Weight (Calculated Kilograms) 103.9 Weight (Calculated Grams) 402195.7 [place] Body Weight 100 lb Body Mass Index (BMI) 44.7 Weight Status Morbidly Obese GI Symptoms GI Symptoms None Last BM 03/03 Difficult in: None Food Allergies No Skin Integrity/Comment: cellulitis and non-pitting 2+ edema of bilateral lower extremities, tennille 15 Current %PO Good (75-100%) Estimated Nutritional Goals BEE in Kcals: Adj wt of IBW Calories/Kcals/Kg 25-30 (based on adj wt 60 kg) Kcals Calculated 1394-6432 Protein: Adj wt of IBW Protein g/k.0 (based on adj wt 60 kg) monitor renal labs Protein Calculated 60 g Fluid: ml 4020-3224 (1 ml/kcal) Nutritional Problem 1. Problem Problem Altered nutrition related lab values Etiology renal dysfunction, electrolyte imbalance Signs/Symptoms: K 3.0, Cl 96, BUN 55, Cr 2.2 Intervention/Recommendation Comments 1. Continue with regular diet as ordered and limit protein to 60 g per day d/t elevated BUN/Cr and hx of ESRD by reducing portions of meat at all meals by half 2. Consider starting low Na 2 gm diet if edema continues to be present 3. Monitor PO intake, wt, labs and skin integrity 4. F/U as moderate risk in 3-5 days, 03/07- Expected Outcomes/Goals Expected Outcomes/Goals 1. PO intake to continue meeting at least 75% of all meals 2. Wt stability, skin to remain intact, and nutrition related labs to approach normal limits Reviwed by Anay Sena RD
[2018-03-07] MEDS: Albuterol/Ipratropium Neb 3 ML AERS HHN SCH ×6 (03:26→23:13)
[2018-03-07 06:03] LABS: HEMATOCRIT 26.2 % (41.0-60); HEMOGLOBIN 8.9 gm/dL (12-16); MEAN CELL VOLUME 81.7 fl (81-100); MEAN CORPUSCULAR HEMOGLOBIN 27.8 pg (27.0-31.0); MEAN PLATELET VOLUME 8.1 fl; PLATELET COUNT 299 Th/cmm (150-400); RED CELL DISTRIBUTION WIDTH 15.2 % (11.5-20.0)
[2018-03-07 06:07] LABS: ALB/GLOB RATIO 0.9 (1.0-1.8); ALBUMIN 3.5 gm/dL (3.7-5.3); ALKALINE PHOSPHATASE 97 U/L (34-104); BILIRUBIN,TOTAL 0.3 mg/dL (0.3-1.0); BUN - UREA NITROGEN 42 mg/dL (7-25); CALCIUM SERUM 9.4 mg/dL (8.6-10.3); CHLORIDE 97 mEq/L (98-107); CHOLESTEROL 133 mg/dL (<200); GLUCOSE 122 mg/dL (70-105); HDL -HIGH DENSITY LIPOPROTEIN 40 mg/dL (23-92); POTASSIUM SERUM 3.2 mEq/L (3.5-5.1); SGOT 15 U/L (13-39); SGPT/ALT 10 U/L (7-52); SODIUM SERUM 134 mEq/L (136-145); TOTAL PROTEIN,SERUM 7.3 gm/dL (6.0-8.3); TRIGLYCERIDES 112 mg/dL (<150)
[2018-03-07] MEDS: Budesonide 0.5 Mg/2 mL Ud HHN SCH ×2 (06:39→19:15)
[2018-03-07 06:41] LABS: WHITE BLOOD COUNT 17.8 Th/cmm (4.8-10.8)
[2018-03-07 07:22] LABS: BAND NEUTROPHILE 1 % (0-10); LYMPHOCYTE 6 % (20-50); NEUTROPHILS 88 % (40-80)
[2018-03-07 07:23] LABS: BASOPHIL 0 % (0-3); EOSINOPHIL 1 % (0-5); MONOCYTE 4 % (2-10)
[2018-03-07] MEDS: Ammonium Lactate Cream 140 gm Tube TP SCH ×2 (08:26→16:57)
[2018-03-07] MEDS: Diltiazem CD 120 mg 24H PO SCH ×2 (08:26→11:33)
[2018-03-07] MEDS: Venelex 60gm Tube TP SCH (08:26)
--- NOTE | 2018-03-07 08:39 | Internal Medicine Prog Note ---
Internal Medicine Subjective - Subjective Patient seen and examined:: chart reviewed Patient is:: awake, verbal, other (no fever ) Patient Complaints of:: congestion Per staff patient has:: tolerating meds Internal Medicine Objective - Results Result Diagrams: 03/07/18 04:40 03/07/18 04:40 Recent Labs: Laboratory Last Values WBC 17.8 Th/cmm (4.8-10.8) H 03/07/18 04:40 RBC 3.20 Mil/cmm (3.80-5.20) L 03/07/18 04:40 Hgb 8.9 gm/dL (12-16) L 03/07/18 04:40 Hct 26.2 % (41.0-60) L 03/07/18 04:40 MCV 81.7 fl (81-100) 03/07/18 04:40 MCH 27.8 pg (27.0-31.0) 03/07/18 04:40 MCHC Differential 34.0 pg (28.0-36.0) 03/07/18 04:40 RDW 15.2 % (11.5-20.0) 03/07/18 04:40 Plt Count 299 Th/cmm (150-400) 03/07/18 04:40 MPV 8.1 fl 03/07/18 04:40 Add Manual Diff YES 03/07/18 04:40 Neutrophils % [employer] 03/07/18 04:40 Band Neutrophils % 1 % (0-10) 03/07/18 04:40 Lymphocytes % [employer] 03/07/18 04:40 Monocytes % [employer] 03/07/18 04:40 Eosinophils % [employer] 03/07/18 04:40 Basophils % [employer] DISP[employer] 03/07/18 04:40 Neutrophils (Manual) 88 % (40-80) H 03/07/18 04:40 Lymphocytes 6 % (20-50) L 03/07/18 04:40 Monocytes 4 % (2-10) 03/07/18 04:40 Eosinophils 1 % (0-5) 03/07/18 04:40 Basophils 0 % (0-3) 03/07/18 04:40 Platelet Estimate ADEQUATE (NORMAL) 03/04/18 05:05 PT 9.4 SECONDS (9.5-11.5) L 03/03/18 11:10 INR 0.90 (0.5-1.4) 03/03/18 11:10 PTT (Actin FS) 28.4 SECONDS (26.0-38.0) 03/03/18 11:10 Specimen Source Arterial 03/06/18 08:39 Sample Site Left Radial 03/06/18 08:39 pH 7.43 (7.35-7.45) 03/06/18 08:39 pCO2 45.0 mmHg (35.0-45.0) 03/06/18 08:39 pO2 53.0 mmHg (80.0-100.0) L 03/06/18 08:39 HCO3 28.4 mEq/L (20.0-26.0) H 03/06/18 08:39 Base Excess 4.8 mEq/L (-3.0-3.0) H 03/06/18 08:39 O2 Saturation 88.0 % (92.0-100.0) L 03/06/18 08:39 Jordon Test Positive 03/06/18 08:39 Vent Rate NA 03/06/18 08:39 Inspired O2 34% 03/06/18 08:39 Tidal Volume NA 03/06/18 08:39 PEEP NA 03/06/18 08:39 Pressure (ins/psv/peep) NA 03/06/18 08:39 Critical Value HSTEHNO 03/06/18 08:39 Sodium 134 mEq/L (136-145) L 03/07/18 04:40 Potassium 3.2 mEq/L (3.5-5.1) L 03/07/18 04:40 Chloride 97 mEq/L (98-107) L 03/07/18 04:40 Carbon Dioxide 25.3 mEq/L (21.0-31.0) 03/05/18 06:20 Anion Gap 15.4 (7.0-16.0) 03/05/18 06:20 BUN 42 mg/dL (7-25) H 03/07/18 04:40 Creatinine 2.1 mg/dL (0.6-1.2) H 03/05/18 06:20 Est GFR ( Amer) TNP 03/05/18 06:20 Est GFR (Non-Af Amer) TNP 03/05/18 06:20 BUN/Creatinine Ratio 24.3 03/05/18 06:20 Glucose 122 mg/dL (70-105) H 03/07/18 04:40 Whole Bld Lactic Acid 1.05 mmol/L (0.60-1.99) 03/03/18 13:20 Calcium 9.4 mg/dL (8.6-10.3) 03/07/18 04:40 Total Bilirubin 0.3 mg/dL (0.3-1.0) 03/07/18 04:40 AST 15 U/L (13-39) 03/07/18 04:40 ALT 10 U/L (7-52) 03/07/18 04:40 Alkaline Phosphatase 97 U/L (34-104) 03/07/18 04:40 Creatine Kinase 60 U/L (30-223) 03/03/18 11:10 Troponin I 0.01 ng/mL (0.01-0.05) 03/03/18 11:10 Total Protein 7.3 gm/dL (6.0-8.3) 03/07/18 04:40 Albumin 3.5 gm/dL (3.7-5.3) L 03/07/18 04:40 Globulin 3.8 gm/dL 03/07/18 04:40 Albumin/Globulin Ratio 0.9 (1.0-1.8) L 03/07/18 04:40 Triglycerides 112 mg/dL (<150) 03/07/18 04:40 Cholesterol 133 mg/dL (<200) 03/07/18 04:40 LDL Cholesterol Direct 82 mg/dL (75-193) 03/07/18 04:40 HDL Cholesterol 40 mg/dL (23-92) 03/07/18 04:40 Urine Source MIDSTREAM 03/03/18 16:00 Urine Color YELLOW 03/03/18 16:00 Urine Clarity HAZY (CLEAR) 03/03/18 16:00 Urine pH 6.0 (4.6 - 8.0) 03/03/18 16:00 Ur Specific [place] 1.015 (1.005-1.030) 03/03/18 16:00 Urine Protein NEGATIVE mg/dL (NEGATIVE) 03/03/18 16:00 Urine Glucose (UA) NEGATIVE mg/dL (NEGATIVE) 03/03/18 16:00 Urine Ketones NEGATIVE mg/dL (NEGATIVE) 03/03/18 16:00 Urine Blood NEGATIVE (NEGATIVE) 03/03/18 16:00 Urine Nitrate POSITIVE (NEGATIVE) H 03/03/18 16:00 Urine Bilirubin NEGATIVE (NEGATIVE) 03/03/18 16:00 Urine Urobilinogen 0.2 E.U./dL (0.2 - 1.0) 03/03/18 16:00 Ur Leukocyte Esterase NEGATIVE (NEGATIVE) 03/03/18 16:00 Urine RBC 0-2 /hpf (0-5) 03/03/18 16:00 Urine WBC 2-5 /hpf (0-5) 03/03/18 16:00 Ur Epithelial Cells FEW /lpf (FEW) 03/03/18 16:00 Urine Bacteria 3+ /hpf (NONE SEEN) H 03/03/18 16:00 Random Vancomycin 7.8 ug/mL (5.0-40.0) 03/07/18 04:40 - Physical Exam Vitals and I&O: Vital Signs Temp 97.5 F 03/07/18 04:00 Pulse 98 03/07/18 06:55 Resp 18 03/07/18 07:53 BP 128/68 03/07/18 04:00 Pulse Ox 100 03/07/18 06:55 Intake & Output 03/06/18 03/07/18 03/07/18 18:59 06:59 18:59 Intake Total 1850 100 Output Total 600 Balance 1850 -500 Weight (lbs) 103.873 kg 103.873 kg Intake: Intake, IV Amount 50 cefTRIAXone 1 gm In 50 Sodium Chloride 0.9% 50 ml @ 100 mls/hr IV Q24HR [facility] Rx#:[id number] Oral 1800 100 Output: Urine 600 Stool 0 Other: # Voids 4 3 # Bowel Movements 0 0 Weight Source Bedscale Bedscale Active Medications: Current Medications Acetaminophen (Tylenol Extra Strength) 1,000 mg PO Q6HR PRN PRN Reason: Pain or Fever >101 Stop: 05/02/18 15:49 Last Admin: 03/05/18 16:37 Dose: 1,000 mg Albuterol/Ipratropium (Duoneb Neb) 3 ml HHN Q4HRT [facility] Stop: 05/05/18 10:59 Last Admin: 03/07/18 06:39 Dose: 3 ml Budesonide (Pulmicort) 0.5 mg HHN BIDRT [facility] Stop: 05/05/18 18:59 Last Admin: 03/07/18 06:39 Dose: 0.5 mg [place] Oil/[place] Balsam/Trypsin (Venelex) 1 appl TP DAILY [facility] Stop: 05/03/18 15:59 Last Admin: 03/07/18 08:26 Dose: 1 appl Diltiazem HCl (Cardizem Cd) 240 mg PO DAILY [facility] Stop: 05/03/18 08:59 Last Admin: 03/06/18 09:05 Dose: Not Given Furosemide (Lasix) 40 mg PO DAILY [facility] Stop: 03/10/18 08:59 Ceftriaxone Sodium 1 gm/ (Sodium Chloride) 50 mls @ 100 mls/hr IV Q24HR [facility] Stop: 05/02/18 16:59 Last Infusion: 03/06/18 17:08 Dose: Infused Dextrose/Sodium Chloride (D5-0.45ns) 1,000 mls @ 10 mls/hr IV .Q24H [facility] Stop: 05/03/18 11:29 Vancomycin HCl 1 gm/ Sodium (Chloride) 250 mls @ 165 mls/hr IV 0800 [facility] Stop: 03/07/18 12:00 Last Admin: 03/07/18 08:27 Dose: 165 mls/hr Lactic Acid (Lac-Hydrin Cream) 1 appl TP BID [facility] Stop: 05/03/18 08:59 Last Admin: 03/07/18 08:26 Dose: 1 appl Methylprednisolone Sodium Succinate (Solu-Medrol) 60 mg IVP Q8HR [facility] Stop: 05/06/18 04:59 Last Admin: 03/07/18 05:31 Dose: 60 mg Miscellaneous (Vancomycin Iv Per Pharmacy) 1 ea MC PRN [facility] Stop: 05/05/18 02:44 Morphine Sulfate (Morphine) 1 mg IVP Q4HR PRN PRN Reason: Pain (Severe) 8-10 Stop: 05/02/18 17:32 Last Admin: 03/06/18 19:52 Dose: 1 mg General: weak, congested, alert HEENT: NC/AT Neck: Supple Lungs: rales Cardiovascular: RRR, Normal S1, Normal S2, without murmur Abdomen: soft, non-tender, non-distended Extremities: excoriation, other (ble nonpitting edema with redness and warmth) Internal Medicine Assmt/Plan - Assessment Assessment: severe hypokalemia ble cellulitis sepsis htn asthma copd hdl chronic renal failure dementia - Plan Plan: as per order sheet Nutritional Asmnt/Malnutr-PDOC - Dietary Evaluation Malnutrition Findings (Please click <Entered> for more info): Nutritional Asmnt/Malnutrition Start: 03/04/18 14: 11 Text: Status: Complete Freq: Protocol: Document 03/04/18 14:11 SARAI (Rec: 03/04/18 14:51 [email or web address]) Nutritional Asmnt/Malnutrition Patient General Information Nutritional Screening High Risk Diagnosis cellulitis, sepsis Pertinent Medical Hx/Surgical Hx HTN, asthma/COPD, dyslipidemia , ESRD, dementia Subjective Information Consult received for BLE venous insufficiency ulcers. Pt was eating lunch after receiving treatment from RN at time of visit. Pt's alert/ oriented and states her food is good w/ no specific preferences. Nursing noted PO intake: 75-100%. Current Diet Order/ Nutrition Support regular Pertinent Medications D5-0.45ns, cardizem Cd, morphine Pertinent Labs 03/04: Na 137, K 3.0, Cl 96, BUN 55, Cr 2.2, glucose 115 03/03: Na 135, K 2.7, Cl 91, BUN 57, Cr 2.3, glucose 93 Nutritional Hx/Data Height 1.52 m Height (Calculated Centimeters) 152.4 Current Weight (lbs) 103.873 kg Weight (Calculated Kilograms) 103.9 Weight (Calculated Grams) 793536.7 [place] Body Weight 100 lb Body Mass Index (BMI) 44.7 Weight Status Morbidly Obese GI Symptoms GI Symptoms None Last BM 03/03 Difficult in: None Food Allergies No Skin Integrity/Comment: cellulitis and non-pitting 2+ edema of bilateral lower extremities, tennille 15 Current %PO Good (75-100%) Estimated Nutritional Goals BEE in Kcals: Adj wt of IBW Calories/Kcals/Kg 25-30 (based on adj wt 60 kg) Kcals Calculated 4433-6817 Protein: Adj wt of IBW Protein g/k.0 (based on adj wt 60 kg) monitor renal labs Protein Calculated 60 g Fluid: ml 7256-2245 (1 ml/kcal) Nutritional Problem 1. Problem Problem Altered nutrition related lab values Etiology renal dysfunction, electrolyte imbalance Signs/Symptoms: K 3.0, Cl 96, BUN 55, Cr 2.2 Intervention/Recommendation Comments 1. Continue with regular diet as ordered and limit protein to 60 g per day d/t elevated BUN/Cr and hx of ESRD by reducing portions of meat at all meals by half 2. Consider starting low Na 2 gm diet if edema continues to be present 3. Monitor PO intake, wt, labs and skin integrity 4. F/U as moderate risk in 3-5 days, 03/07- Expected Outcomes/Goals Expected Outcomes/Goals 1. PO intake to continue meeting at least 75% of all meals 2. Wt stability, skin to remain intact, and nutrition related labs to approach normal limits Reviwed by Anay Sena RD
[2018-03-07 08:51] LABS: ANION GAP 16.8 (7.0-16.0); CARBON DIOXIDE 23.4 mEq/L (21.0-31.0); CREATININE - SERUM 1.8 mg/dL (0.6-1.2); MAGNESIUM 2.2 mg/dL (1.9-2.7)
[2018-03-07] MEDS ORDERED: Potassium Chloride 20 mEq ER Tab PO ONE (10:05)
--- NOTE | 2018-03-07 10:07 | Diagnostic Imaging Report ---
Renal ultrasound HISTORY: Abnormal renal function tests There is suboptimal detail of the margins of the right kidney which measures approximately 10.8 x 5.1 x 4.8 cm. No obvious focal lesions. No hydronephrosis. The left kidney measures 10.7 x 6.6 x 5.8 cm. A 1.0 cm sonolucent lesion is noted in the upper pole consistent with a cyst. No hydronephrosis. The urinary bladder cannot be visualized due to lack of distention. IMPRESSION: 1. Somewhat limited examination particularly of the right kidney 2. 1.0 cm left renal cyst 3. No hydronephrosis
[2018-03-07] MEDS: Morphine Sulfate 2 mg/mL 1mL Syr IVP PRN ×2 (11:28→21:13)
[2018-03-07 11:37] LABS: URINE SOURCE CLEAN C
[2018-03-07 11:40] LABS: URINE BILIRUBIN NEGATIVE (NEGATIVE); URINE BLOOD NEGATIVE (NEGATIVE); URINE GLUCOSE (UA) NEGATIVE (NEGATIVE); URINE KETONE NEGATIVE (NEGATIVE); URINE LEUKOCYTE ESTERASE NEGATIVE (NEGATIVE); URINE NITRATE NEGATIVE (NEGATIVE); URINE PROTEIN NEGATIVE (NEGATIVE); URINE UROBILINOGEN 0.2 E.U./dL (0.2 - 1.0)
[2018-03-07 11:41] LABS: URINE CLARITY CLEAR (CLEAR); URINE COLOR YELLOW; URINE MICROSCOPIC INDICATED? NO
[2018-03-07] MEDS: cefTRIAXone 1 GM in Sodium Chloride 0.9% 50 ML IV SCH (16:56)
--- NOTE | 2018-03-07 17:22 | Consultation ---
DATE OF CONSULTATION: 03/06/2018 TIME: About 5:30 p.m. REQUESTING PHYSICIAN FOR CONSULTATION: Dr. Goldberg. REASON FOR CONSULTATION: Evaluation of renal status, hypertension and other associated problem, especially fluid overload. HISTORY OF PRESENT ILLNESS: This is a 72-year-old lady who is here because of marked swelling of the lower extremities and some eruptions. The patient had been also draining fluid from the blisters on the legs, which was a matter of concern. The patient does have other problems. The patient had been a smoker for "55 plus years," smoking on average of 1 to 1-1/2 pack of cigarettes per day. The patient worked in the [employer] for 20 years in the past. Does not work, retired at present time and disabled. The patient continued to smoke until a year ago. The patient started developing shortness of breath 15 years ago. PHYSICAL EXAMINATION: VITAL SIGNS: Latest vital signs recorded here reveals a blood pressure of 128/53, temperature 98.4 degrees Fahrenheit, heart rate of 87 per minute, respiratory rate 18 per minute, O2 saturation with oxygen nasal cannula 2-3 liters is 99%. GENERAL: Clinical examination reveals the patient to be short stature, obese. HEENT: Reveals somewhat upset at present time. CHEST: Distant breath sounds with rhonchi. No significant rales noted. HEART: S1, S2 heard, normally heard rhythm at present reveals tachyarrhythmia with a rate of about 110-115 per minute, at least on the monitor recorded out here. The patient's weight recorded as 229 pounds and echocardiogram done reveals mitral regurgitation and tricuspid regurgitation. I could not hear any significant murmurs when I was examining the patient either from mitral regurgitation or tricuspid. There are also findings of left ventricular hypertrophy. EKG done earlier revealed a sinus rhythm with a rate of 68 per minute, which seems to be a little unusual because other rates recorded here are variable and some of them are more than 100. ABDOMEN: Large. The patient had a previous gallbladder surgery. Denies any chest pain as such, but gets short of breath. EXTREMITIES: The patient had been also having, for about 6-7 weeks, swelling of the lower extremities and blisters from which the patient had been draining significant amount of fluid. Reason for this is not very clear. LABORATORY DATA: The patient's other clinical examination reveals the following. Biochemical data reveals as per yesterday that is 03/05/2018, hemoglobin 9.4 grams percent, WBC count 16.4 thousand, platelet count 309, band neutrophils 1%, neutrophil percentage is 82%, lymphocytes 7 and monocytes 4. The patient's biochemical data reveals as of today, sodium 135, potassium 3.7, chloride 98, CO2 content 25.3, BUN 51, creatinine 2.1, glucose 128, calcium 9.1. Earlier on 03/03/2018, albumin was 3.7 and total protein was 7.7. Liver enzymes were essentially normal. An ABG done today reveals pH of 7.43, PCO2 of 45, PaO2 is 53 on 3 liters of oxygen by nasal cannula with 88% saturations, according to the record out here. Urinalysis done on 03/03/2018 was negative for leukocyte esterase but there were 3+ bacteria reported on the urine and positive for urine nitrite suggesting urinary tract infection. The patient at present on Tylenol Extra Strength 1000 mg q.6h. p.r.n. for pain, DuoNeb inhalation 3 mL every 4 hours, Pulmicort 0.5 mg HHN. The patient also on diltiazem 240 mg p.o. daily, Rocephin 1 gram p.o. daily, local cream to the legs. I do not see the patient being on any diuretic. The patient is having a significant swelling to the legs, may benefit that to her. I do not see the report for the urine cultures, which are either awaited or at least not reported. Considering that we would seek the report and treat it accordingly with the appropriate antibiotic, add some diuretic, I would say Lasix 40 mg daily, and repeat the chemistry so that we know that the patient does not become hyperkalemic and would follow daily weights. PROBLEM LIST: 1. Hypertension with cardiac arrhythmia as suggested by treatment and left ventricular hypertrophy. 2. Urinary tract infection. 3. Swelling of both lower extremities with water draining. 4. History of hyperlipidemia and obesity at present time. 5. Along with that, shortness of breath and disease suggested by low pO2 and a little high pCO2, moderately elevated BUN and creatinine suggesting chronic renal failure, etiology not clear, related to probably chronic obstructive pulmonary disease and other problems with chronic kidney disease 3. JOB# [id number]
--- NOTE | 2018-03-07 17:22 | Consultation ---
DATE OF CONSULTATION: 03/06/2018 PATIENT OF: Dr. Goldberg. Thank you very much for this consultation. HISTORY OF PRESENT ILLNESS: This is a 72-year-old female with a history of COPD who presented with cellulitis of the legs and has been treated for that and some shortness of breath on and off. The patient was stated to have COPD for 10 years. She is using a nebulizer machine. She does not like inhalers. She has also home oxygen. PAST MEDICAL HISTORY: As above, hypertension, dyslipidemia, and renal failure. SOCIAL HISTORY: History of smoking for many years, quit 1 year ago. REVIEW OF SYSTEMS: GENERAL: Some weakness and fatigue, ____. RESPIRATORY: Shortness of breath. GASTROINTESTINAL: No nausea or vomiting. PHYSICAL EXAMINATION: GENERAL: Awake, alert, not in acute distress. VITAL SIGNS: Temperature 98.4, pulse 87, respirations 18, blood pressure 128/53, saturation 99%. HEENT: Atraumatic, normocephalic. Pupils are equal and reactive to light and accommodation. Ears, nose and throat are normal. NECK: Supple. No JVD. CHEST: There is minimal wheezing and rhonchi bilaterally. HEART: Regular rhythm. ABDOMEN: Soft. EXTREMITIES: No edema. LABORATORY DATA: WBC 16.4, hemoglobin 9.4, hematocrit 28.2, platelets 309. ABGs: pH 7.43, pCO2 of 45, pO2 of 53, bicarbonate 28, saturations 88%. Sodium 135, potassium 3.7, BUN 51, creatinine 2.1. UA is positive for nitrite. Chest x-ray, no acute infiltrates. IMPRESSION: This is a 72-year-old female with bilateral leg cellulitis, COPD, and some wheezing. PLAN: We will continue with the bronchodilator nebulizer, add Pulmicort nebulizer, supportive care, and follow the patient with you. JOB# [id number]
[2018-03-08] MEDS: Albuterol/Ipratropium Neb 3 ML AERS HHN SCH ×6 (02:04→22:05)
[2018-03-08] MEDS: Budesonide 0.5 Mg/2 mL Ud HHN SCH ×2 (07:03→19:23)
[2018-03-08 07:14] LABS: EOSINOPHILE ABSOLUTE 0.1 Th/cmm (0.1-0.4); HEMATOCRIT 26.7 % (41.0-60); HEMOGLOBIN 8.9 gm/dL (12-16); LYMPHOCYTE ABSOLUTE 0.6 Th/cmm (1.5-3.0); MEAN CELL VOLUME 82.3 fl (81-100); MEAN CORPUSCULAR HEMOGLOBIN 27.5 pg (27.0-31.0); MEAN CORPUSCULAR HGB CONC 33.4 pg (28.0-36.0); MEAN PLATELET VOLUME 7.3 fl; MONOCYTE ABSOLUTE 0.3 Th/cmm (0.3-1.0); NEUTROPHILE ABSOLUTE 20.5 Th/cmm (1.8-8.0); PLATELET COUNT 345 Th/cmm (150-400); RED BLOOD COUNT 3.24 Mil/cmm (3.80-5.20); RED CELL DISTRIBUTION WIDTH 15.5 % (11.5-20.0)
[2018-03-08 07:19] LABS: WHITE BLOOD COUNT 21.5 Th/cmm (4.8-10.8)
[2018-03-08 07:28] LABS: ANION GAP 18.4 (7.0-16.0); BUN - UREA NITROGEN 46 mg/dL (7-25); CALCIUM SERUM 9.5 mg/dL (8.6-10.3); CARBON DIOXIDE 23.7 mEq/L (21.0-31.0); CHLORIDE 99 mEq/L (98-107); CREATININE - SERUM 1.8 mg/dL (0.6-1.2); GLUCOSE 192 mg/dL (70-105); POTASSIUM SERUM 4.1 mEq/L (3.5-5.1); SODIUM SERUM 137 mEq/L (136-145)
[2018-03-08 08:01] LABS: BAND NEUTROPHILE 0 % (0-10); LYMPHOCYTE 4 % (20-50); MONOCYTE 2 % (2-10); NEUTROPHILS 94 % (40-80)
--- NOTE | 2018-03-08 08:30 | Diagnostic Imaging Report ---
Ultrasound abdomen HISTORY:Elevated renal function tests, provided history of cholecystectomy COMPARISON: Renal ultrasound performed on 03/06/2019 Technique: Sonography of the abdomen was performed in multiple planes. FINDINGS: Exam is limited due to body habitus. The visualized portions of the pancreas are unremarkable. The visualized portions of the abdominal aorta are within normal limits in size. Minimal atherosclerosis is noted. The liver demonstrates normal echogenicity and measures 20.2 cm. There is an indeterminate heterogeneous area along the right pleural space and right hepatic border. The gallbladder was not visualized. The common bile duct measures 4 mm. The right kidney measures 9.0 x 4.5 cm demonstrating increased echogenicity. There is a 9 mm right renal cyst. 5 mm echogenic focus of the right kidney is noted. No hydronephrosis. The left kidney measures 10.6 x 5.5 cm demonstrate increased echogenicity. No hydronephrosis. The left renal cyst seen on previous examination was not identified on this exam. The spleen measures 13.6 cm. IMPRESSION: Increased echogenicity of the kidneys which may be due to underlying medical renal disease, please correlate clinically. 5 mm echogenic focus of the right kidney which may represent renal sinus fat versus a nonobstructive stone. 9 mm right renal cyst. Hepatomegaly. There is also indeterminate area along the right hepatic border, possibly the right pleural space. A complex pleural fluid collection or other abnormalities cannot be excluded. Recommend short-term follow-up with CT examination, preferably with IV contrast. The gallbladder is not visualized and may have been removed please correlate with clinical history. Mild splenomegaly.
--- NOTE | 2018-03-08 08:35 | Diagnostic Imaging Report ---
Ultrasound pelvis HISTORY: Abnormal labs. Patient is postmenopausal COMPARISON: Abdominal ultrasound the same day Technique: Longitudinal and transverse sonographic sector images of the pelvis were obtained transabdominally only. No patient refused transvaginal images. Findings: Exam is limited due to patient's medical condition and body habitus. The uterus measures 9.0 x 3.9 x 4.0 cm. The Endometrial echo complex measures 1.6 cm. The right ovary measures 3.0 x 2.4 cm. The left ovary measures 3.3 x 2.6 cm. No free fluid in the pelvis. Low-level echoes of the urinary bladder are noted. IMPRESSION: Thickened endometrium measuring 1.6 cm. Clinical correlation and further assessment of this finding is recommended given patient's postmenopausal status. Neoplastic process cannot be excluded given patient's age. Low level echoes within the urinary bladder which may represent clot debris or less likely other mass lesions. Recommend clinical correlation.
[2018-03-08] MEDS: Morphine Sulfate 2 mg/mL 1mL Syr IVP PRN ×2 (08:44→15:49)
[2018-03-08] MEDS: Diltiazem CD 120 mg 24H PO SCH (08:45)
[2018-03-08] MEDS: Ammonium Lactate Cream 140 gm Tube TP SCH ×2 (10:00→17:12)
[2018-03-08] MEDS: Vancomycin HCl 1.5 GM in Sodium Chloride 0.9% 500 ML IV SCH (10:30)
--- NOTE | 2018-03-08 10:31 | Internal Medicine Prog Note ---
Internal Medicine Subjective - Subjective Patient seen and examined:: chart reviewed Patient is:: awake, verbal, other (no distress ) Patient Complaints of:: congestion Per staff patient has:: tolerating meds Internal Medicine Objective - Results Result Diagrams: 03/08/18 07:00 03/08/18 07:00 Recent Labs: Laboratory Last Values WBC 21.5 Th/cmm (4.8-10.8) H* 03/08/18 07:00 RBC 3.24 Mil/cmm (3.80-5.20) L 03/08/18 07:00 Hgb 8.9 gm/dL (12-16) L 03/08/18 07:00 Hct 26.7 % (41.0-60) L 03/08/18 07:00 MCV 82.3 fl (81-100) 03/08/18 07:00 MCH 27.5 pg (27.0-31.0) 03/08/18 07:00 MCHC Differential 33.4 pg (28.0-36.0) 03/08/18 07:00 RDW 15.5 % (11.5-20.0) 03/08/18 07:00 Plt Count 345 Th/cmm (150-400) 03/08/18 07:00 MPV 7.3 fl 03/08/18 07:00 Add Manual Diff YES 03/08/18 07:00 Neutrophils % [employer]ER 03/07/18 04:40 Band Neutrophils % 0 % (0-10) 03/08/18 07:00 Lymphocytes % [employer]ER 03/07/18 04:40 Monocytes % [employer]IFE OFF[employer]ER 03/07/18 04:40 Eosinophils % [employer] OFF[employer]ER 03/07/18 04:40 Basophils % [employer]IFE OFF[employer]ER 03/07/18 04:40 Neutrophils (Manual) 94 % (40-80) H 03/08/18 07:00 Lymphocytes 4 % (20-50) L 03/08/18 07:00 Monocytes 2 % (2-10) 03/08/18 07:00 Eosinophils 1 % (0-5) 03/07/18 04:40 Basophils 0 % (0-3) 03/07/18 04:40 Platelet Estimate ADEQUATE (NORMAL) 03/04/18 05:05 PT 9.4 SECONDS (9.5-11.5) L 03/03/18 11:10 INR 0.90 (0.5-1.4) 03/03/18 11:10 PTT (Actin FS) 28.4 SECONDS (26.0-38.0) 03/03/18 11:10 Specimen Source Arterial 03/06/18 08:39 Sample Site Left Radial 03/06/18 08:39 pH 7.43 (7.35-7.45) 03/06/18 08:39 pCO2 45.0 mmHg (35.0-45.0) 03/06/18 08:39 pO2 53.0 mmHg (80.0-100.0) L 03/06/18 08:39 HCO3 28.4 mEq/L (20.0-26.0) H 03/06/18 08:39 Base Excess 4.8 mEq/L (-3.0-3.0) H 03/06/18 08:39 O2 Saturation 88.0 % (92.0-100.0) L 03/06/18 08:39 Jordon Test Positive 03/06/18 08:39 Vent Rate NA 03/06/18 08:39 Inspired O2 34% 03/06/18 08:39 Tidal Volume NA 03/06/18 08:39 PEEP NA 03/06/18 08:39 Pressure (ins/psv/peep) NA 03/06/18 08:39 Critical Value HSTEHNO 03/06/18 08:39 Sodium 137 mEq/L (136-145) 03/08/18 07:00 Potassium 4.1 mEq/L (3.5-5.1) 03/08/18 07:00 Chloride 99 mEq/L (98-107) 03/08/18 07:00 Carbon Dioxide 23.7 mEq/L (21.0-31.0) 03/08/18 07:00 Anion Gap 18.4 (7.0-16.0) H 03/08/18 07:00 BUN 46 mg/dL (7-25) H 03/08/18 07:00 Creatinine 1.8 mg/dL (0.6-1.2) H 03/08/18 07:00 Est GFR ( Amer) TNP 03/08/18 07:00 Est GFR (Non-Af Amer) TNP 03/08/18 07:00 BUN/Creatinine Ratio 25.6 03/08/18 07:00 Glucose 192 mg/dL (70-105) H 03/08/18 07:00 Whole Bld Lactic Acid 1.05 mmol/L (0.60-1.99) 03/03/18 13:20 Calcium 9.5 mg/dL (8.6-10.3) 03/08/18 07:00 Magnesium 2.2 mg/dL (1.9-2.7) 03/07/18 04:40 Total Bilirubin 0.3 mg/dL (0.3-1.0) 03/07/18 04:40 AST 15 U/L (13-39) 03/07/18 04:40 ALT 10 U/L (7-52) 03/07/18 04:40 Alkaline Phosphatase 97 U/L (34-104) 03/07/18 04:40 Creatine Kinase 60 U/L (30-223) 03/03/18 11:10 Troponin I 0.01 ng/mL (0.01-0.05) 03/03/18 11:10 Total Protein 7.3 gm/dL (6.0-8.3) 03/07/18 04:40 Albumin 3.5 gm/dL (3.7-5.3) L 03/07/18 04:40 Globulin 3.8 gm/dL 03/07/18 04:40 Albumin/Globulin Ratio 0.9 (1.0-1.8) L 03/07/18 04:40 Triglycerides 112 mg/dL (<150) 03/07/18 04:40 Cholesterol 133 mg/dL (<200) 03/07/18 04:40 LDL Cholesterol Direct 82 mg/dL (75-193) 03/07/18 04:40 HDL Cholesterol 40 mg/dL (23-92) 03/07/18 04:40 Urine Source CLEAN C 03/07/18 08:10 Urine Color YELLOW 03/07/18 08:10 Urine Clarity CLEAR (CLEAR) 03/07/18 08:10 Urine pH 6.0 (4.6 - 8.0) 03/07/18 08:10 Ur Specific [place] 1.015 (1.005-1.030) 03/07/18 08:10 Urine Protein NEGATIVE mg/dL (NEGATIVE) 03/07/18 08:10 Urine Glucose (UA) NEGATIVE mg/dL (NEGATIVE) 03/07/18 08:10 Urine Ketones NEGATIVE mg/dL (NEGATIVE) 03/07/18 08:10 Urine Blood NEGATIVE (NEGATIVE) 03/07/18 08:10 Urine Nitrate NEGATIVE (NEGATIVE) 03/07/18 08:10 Urine Bilirubin NEGATIVE (NEGATIVE) 03/07/18 08:10 Urine Urobilinogen 0.2 E.U./dL (0.2 - 1.0) 03/07/18 08:10 Ur Leukocyte Esterase NEGATIVE (NEGATIVE) 03/07/18 08:10 Urine RBC 0-2 /hpf (0-5) 03/03/18 16:00 Urine WBC 2-5 /hpf (0-5) 03/03/18 16:00 Ur Epithelial Cells FEW /lpf (FEW) 03/03/18 16:00 Urine Bacteria 3+ /hpf (NONE SEEN) H 03/03/18 16:00 Random Vancomycin 12.2 ug/mL (5.0-40.0) 03/08/18 07:00 - Physical Exam Vitals and I&O: Vital Signs Temp 98.8 F 03/08/18 08:56 Pulse 97 03/08/18 08:56 Resp 18 03/08/18 08:56 BP 123/78 03/08/18 08:56 Pulse Ox 94 03/08/18 08:56 Intake & Output 03/07/18 03/08/18 03/08/18 18:59 06:59 18:59 Intake Total 2049 250 Balance 2049 250 Weight (lbs) 103.873 kg 103.873 kg Intake: Intake, IV Amount 250 Vancomycin HCl 1 gm In 250 Sodium Chloride 0.9% 250 ml @ 165 mls/hr IV 0800 [facility] Rx#:[id number] Oral 1800 250 Other: # Voids 4 3 # Bowel Movements 1 0 Weight Source Bedscale Bedscale Active Medications: Current Medications Acetaminophen (Tylenol Extra Strength) 1,000 mg PO Q6HR PRN PRN Reason: Pain or Fever >101 Stop: 05/02/18 15:49 Last Admin: 03/05/18 16:37 Dose: 1,000 mg Albuterol/Ipratropium (Duoneb Neb) 3 ml HHN Q4HRT [facility] [place] Stop: 05/05/18 10:59 Last Admin: 03/08/18 07:03 Dose: 3 ml Budesonide (Pulmicort) 0.5 mg HHN BIDRT [facility] [place] Stop: 05/05/18 18:59 Last Admin: 03/08/18 07:03 Dose: 0.5 mg [place] Oil/[place] Balsam/Trypsin (Venelex) 1 appl TP DAILY AYLEEN Stop: 05/03/18 15:59 Last Admin: 03/07/18 08:26 Dose: 1 appl Diltiazem HCl (Cardizem Cd) 240 mg PO DAILY AYLEEN Stop: 05/03/18 08:59 Last Admin: 03/08/18 08:45 Dose: 240 mg Furosemide (Lasix) 40 mg PO DAILY AYLEEN Stop: 03/10/18 08:59 Last Admin: 03/08/18 08:44 Dose: 40 mg Ceftriaxone Sodium 1 gm/ (Sodium Chloride) 50 mls @ 100 mls/hr IV Q24HR [facility] [place] Stop: 05/02/18 16:59 Last Admin: 03/07/18 16:56 Dose: 100 mls/hr Dextrose/Sodium Chloride (D5-0.45ns) 1,000 mls @ 10 mls/hr IV .Q24H [facility] [place] Stop: 05/03/18 11:29 Vancomycin HCl 1.5 gm/ Sodium (Chloride) 500 mls @ 250 mls/hr IV Q24H AYLEEN Stop: 05/07/18 08:59 Lactic Acid (Lac-Hydrin Cream) 1 appl TP BID [facility] [place] Stop: 05/03/18 08:59 Last Admin: 03/07/18 16:57 Dose: 1 appl Methylprednisolone Sodium Succinate (Solu-Medrol) 60 mg IVP Q8HR AYLEEN Stop: 05/06/18 04:59 Last Admin: 03/08/18 05:30 Dose: 60 mg Miscellaneous (Vancomycin Iv Per Pharmacy) 1 ea MC PRN [facility] [place] Stop: 05/05/18 02:44 Morphine Sulfate (Morphine) 1 mg IVP Q4HR PRN PRN Reason: Pain (Severe) 8- Stop: 05/02/18 17:32 Last Admin: 03/08/18 08:44 Dose: 1 mg General: weak, congested, alert HEENT: NC/AT Neck: Supple Lungs: rales Cardiovascular: RRR, Normal S1, Normal S2, without murmur Abdomen: soft, non-tender, non-distended Extremities: excoriation, other (ble nonpitting edema with redness and warmth) Internal Medicine Assmt/Plan - Assessment Assessment: severe hypokalemia ble cellulitis sepsis htn asthma copd hdl chronic renal failure dementia - Plan Plan: as per order sheet Nutritional Asmnt/Malnutr-PDOC - Dietary Evaluation Malnutrition Findings (Please click <Entered> for more info): Nutritional Asmnt/Malnutrition Start: 03/04/18 14: 11 Text: Status: Complete Freq: Protocol: Document 03/04/18 14:11 SARITAELLYN (Rec: 03/04/18 14:51 [email or web address] [email or web address]) Nutritional Asmnt/Malnutrition Patient General Information Nutritional Screening High Risk Diagnosis cellulitis, sepsis Pertinent Medical Hx/Surgical Hx HTN, asthma/COPD, dyslipidemia , ESRD, dementia Subjective Information Consult received for BLE venous insufficiency ulcers. Pt was eating lunch after receiving treatment from RN at time of visit. Pt's alert/ oriented and states her food is good w/ no specific preferences. Nursing noted PO intake: 75-100%. Current Diet Order/ Nutrition Support regular Pertinent Medications D5-0.45ns, cardizem Cd, morphine Pertinent Labs 03/04: Na 137, K 3.0, Cl 96, BUN 55, Cr 2.2, glucose 115 03/03: Na 135, K 2.7, Cl 91, BUN 57, Cr 2.3, glucose 93 Nutritional Hx/Data Height 1.52 m Height (Calculated Centimeters) 152.4 Current Weight (lbs) 103.873 kg Weight (Calculated Kilograms) 103.9 Weight (Calculated Grams) 961713.7 [place] Body Weight 100 lb Body Mass Index (BMI) 44.7 Weight Status Morbidly Obese GI Symptoms GI Symptoms None Last BM 03/03 Difficult in: None Food Allergies No Skin Integrity/Comment: cellulitis and non-pitting 2+ edema of bilateral lower extremities, tennille 15 Current %PO Good (75-100%) Estimated Nutritional Goals BEE in Kcals: Adj wt of IBW Calories/Kcals/Kg 25-30 (based on adj wt 60 kg) Kcals Calculated [id number] Protein: Adj wt of IBW Protein g/k.0 (based on adj wt 60 kg) monitor renal labs Protein Calculated 60 g Fluid: ml 8827-2230 (1 ml/kcal) Nutritional Problem 1. Problem Problem Altered nutrition related lab values Etiology renal dysfunction, electrolyte imbalance Signs/Symptoms: K 3.0, Cl 96, BUN 55, Cr 2.2 Intervention/Recommendation Comments 1. Continue with regular diet as ordered and limit protein to 60 g per day d/t elevated BUN/Cr and hx of ESRD by reducing portions of meat at all meals by half 2. Consider starting low Na 2 gm diet if edema continues to be present 3. Monitor PO intake, wt, labs and skin integrity 4. F/U as moderate risk in 3-5 days, 03/07- Expected Outcomes/Goals Expected Outcomes/Goals 1. PO intake to continue meeting at least 75% of all meals 2. Wt stability, skin to remain intact, and nutrition related labs to approach normal limits Reviwed by Anay Sena RD
[2018-03-08] MEDS: cefTRIAXone 1 GM in Sodium Chloride 0.9% 50 ML IV SCH (17:09)
[2018-03-08] MEDS: Venelex 60gm Tube TP SCH (17:12)
[2018-03-08] MEDS: methylPREDNISolone SS 40 mg Vial IVP SCH (22:09)
[2018-03-08] MEDS: Acetaminophen 500 MG TAB PO PRN (22:09)
[2018-03-09] MEDS: Albuterol/Ipratropium Neb 3 ML AERS HHN SCH ×4 (03:08→14:00)
[2018-03-09 04:51] LABS: HEMATOCRIT 25.7 % (41.0-60); HEMOGLOBIN 8.5 gm/dL (12-16); MEAN CELL VOLUME 82.8 fl (81-100); MEAN CORPUSCULAR HEMOGLOBIN 27.4 pg (27.0-31.0); MEAN CORPUSCULAR HGB CONC 33.1 pg (28.0-36.0); MEAN PLATELET VOLUME 7.6 fl; PLATELET COUNT 365 Th/cmm (150-400); RED CELL DISTRIBUTION WIDTH 15.3 % (11.5-20.0)
[2018-03-09 05:07] LABS: ANION GAP 15.1 (7.0-16.0); BUN - UREA NITROGEN 53 mg/dL (7-25); CALCIUM SERUM 9.3 mg/dL (8.6-10.3); CHLORIDE 99 mEq/L (98-107); CREATININE - SERUM 1.8 mg/dL (0.6-1.2); GLUCOSE 206 mg/dL (70-105); POTASSIUM SERUM 4.1 mEq/L (3.5-5.1); SODIUM SERUM 135 mEq/L (136-145)
[2018-03-09 05:29] LABS: WHITE BLOOD COUNT 20.6 Th/cmm (4.8-10.8)
[2018-03-09 06:37] LABS: BAND NEUTROPHILE 0 % (0-10); LYMPHOCYTE 2 % (20-50); MONOCYTE 2 % (2-10); NEUTROPHILS 96 % (40-80)
[2018-03-09] MEDS: Budesonide 0.5 Mg/2 mL Ud HHN SCH (06:37)
[2018-03-09 07:09] LABS: FERRITIN 178 ng/mL (15-150); IRON LC 33 ug/dL (27-139); TIBC (LC) 238 ug/dL (250-450); UIBC 205 ug/dL (118-369)
[2018-03-09] MEDS: methylPREDNISolone SS 40 mg Vial IVP SCH (08:56)
[2018-03-09] MEDS: Diltiazem CD 120 mg 24H PO SCH (08:56)
[2018-03-09] MEDS: Vancomycin HCl 1.5 GM in Sodium Chloride 0.9% 500 ML IV SCH (08:57)
[2018-03-09] MEDS ORDERED: Maalox 30 mL Cup PO PRN (09:00)
[2018-03-09] MEDS: Venelex 60gm Tube TP SCH (09:12)
[2018-03-09] MEDS: Ammonium Lactate Cream 140 gm Tube TP SCH ×2 (09:12→16:18)
--- NOTE | 2018-03-09 11:59 | Infectious Disease Prog Note ---
Infectious Disease Subjective - Review of Systems Service Date: 03/09/18 Subjective: There is no new change, no fever, Infectious Disease Objective - Results Result Diagrams: 03/09/18 04:25 03/09/18 04:25 Recent Labs: Laboratory Last Values WBC 20.6 Th/cmm (4.8-10.8) H* 03/09/18 04:25 RBC 3.10 Mil/cmm (3.80-5.20) L 03/09/18 04:25 Hgb 8.5 gm/dL (12-16) L 03/09/18 04:25 Hct 25.7 % (41.0-60) L 03/09/18 04:25 MCV 82.8 fl (81-100) 03/09/18 04:25 MCH 27.4 pg (27.0-31.0) 03/09/18 04:25 MCHC Differential 33.1 pg (28.0-36.0) 03/09/18 04:25 RDW 15.3 % (11.5-20.0) 03/09/18 04:25 Plt Count 365 Th/cmm (150-400) 03/09/18 04:25 MPV 7.6 fl 03/09/18 04:25 Add Manual Diff 03/09/18 04:25 Neutrophils % MEDICAL MALPRACTICE PARALEGAL 03/07/18 04:40 Band Neutrophils % 0 % (0-10) 03/09/18 04:25 Lymphocytes % MEDICAL MALPRACTICE PARALEGAL 03/07/18 04:40 Monocytes % MEDICAL MALPRACTICE PARALEGAL 03/07/18 04:40 Eosinophils % MEDICAL MALPRACTICE PARALEGAL 03/07/18 04:40 Basophils % MEDICAL MALPRACTICE PARALEGAL 03/07/18 04:40 Neutrophils (Manual) 96 % (40-80) H 03/09/18 04:25 Lymphocytes 2 % (20-50) L 03/09/18 04:25 Monocytes 2 % (2-10) 03/09/18 04:25 Eosinophils 1 % (0-5) 03/07/18 04:40 Basophils 0 % (0-3) 03/07/18 04:40 Platelet Estimate ADEQUATE (NORMAL) 03/04/18 05:05 PT 9.4 SECONDS (9.5-11.5) L 03/03/18 11:10 INR 0.90 (0.5-1.4) 03/03/18 11:10 PTT (Actin FS) 28.4 SECONDS (26.0-38.0) 03/03/18 11:10 Specimen Source Arterial 03/06/18 08:39 Sample Site Left Radial 03/06/18 08:39 pH 7.43 (7.35-7.45) 03/06/18 08:39 pCO2 45.0 mmHg (35.0-45.0) 03/06/18 08:39 pO2 53.0 mmHg (80.0-100.0) L 03/06/18 08:39 HCO3 28.4 mEq/L (20.0-26.0) H 03/06/18 08:39 Base Excess 4.8 mEq/L (-3.0-3.0) H 03/06/18 08:39 O2 Saturation 88.0 % (92.0-100.0) L 03/06/18 08:39 Jordon Test Positive 03/06/18 08:39 Vent Rate NA 03/06/18 08:39 Inspired O2 34% 03/06/18 08:39 Tidal Volume NA 03/06/18 08:39 PEEP NA 03/06/18 08:39 Pressure (ins/psv/peep) NA 03/06/18 08:39 Critical Value HSTEHNO 03/06/18 08:39 Sodium 135 mEq/L (136-145) L 03/09/18 04:25 Potassium 4.1 mEq/L (3.5-5.1) 03/09/18 04:25 Chloride 99 mEq/L (98-107) 03/09/18 04:25 Carbon Dioxide 25.0 mEq/L (21.0-31.0) 03/09/18 04:25 Anion Gap 15.1 (7.0-16.0) 03/09/18 04:25 BUN 53 mg/dL (7-25) H 03/09/18 04:25 Creatinine 1.8 mg/dL (0.6-1.2) H 03/09/18 04:25 Est GFR ( Amer) TNP 03/09/18 04:25 Est GFR (Non-Af Amer) TNP 03/09/18 04:25 BUN/Creatinine Ratio 29.4 03/09/18 04:25 Glucose 206 mg/dL (70-105) H 03/09/18 04:25 Whole Bld Lactic Acid 1.05 mmol/L (0.60-1.99) 03/03/18 13:20 Calcium 9.3 mg/dL (8.6-10.3) 03/09/18 04:25 Magnesium 2.2 mg/dL (1.9-2.7) 03/07/18 04:40 Iron 33 ug/dL (27-139) 03/07/18 04:40 TIBC 238 ug/dL (250-450) L 03/07/18 04:40 Iron Saturation 14 % (15-55) L 03/07/18 04:40 Unsaturated IBC 205 ug/dL (118-369) 03/07/18 04:40 Ferritin 178 ng/mL (15-150) H 03/07/18 04:40 Total Bilirubin 0.3 mg/dL (0.3-1.0) 03/07/18 04:40 AST 15 U/L (13-39) 03/07/18 04:40 ALT 10 U/L (7-52) 03/07/18 04:40 Alkaline Phosphatase 97 U/L (34-104) 03/07/18 04:40 Creatine Kinase 60 U/L (30-223) 03/03/18 11:10 Troponin I 0.01 ng/mL (0.01-0.05) 03/03/18 11:10 Total Protein 7.3 gm/dL (6.0-8.3) 03/07/18 04:40 Albumin 3.5 gm/dL (3.7-5.3) L 03/07/18 04:40 Globulin 3.8 gm/dL 03/07/18 04:40 Albumin/Globulin Ratio 0.9 (1.0-1.8) L 03/07/18 04:40 Triglycerides 112 mg/dL (<150) 03/07/18 04:40 Cholesterol 133 mg/dL (<200) 03/07/18 04:40 LDL Cholesterol Direct 82 mg/dL (75-193) 03/07/18 04:40 HDL Cholesterol 40 mg/dL (23-92) 03/07/18 04:40 Urine Source CLEAN C 03/07/18 08:10 Urine Color YELLOW 03/07/18 08:10 Urine Clarity CLEAR (CLEAR) 03/07/18 08:10 Urine pH 6.0 (4.6 - 8.0) 03/07/18 08:10 Ur Specific [place] 1.015 (1.005-1.030) 03/07/18 08:10 Urine Protein NEGATIVE mg/dL (NEGATIVE) 03/07/18 08:10 Urine Glucose (UA) NEGATIVE mg/dL (NEGATIVE) 03/07/18 08:10 Urine Ketones NEGATIVE mg/dL (NEGATIVE) 03/07/18 08:10 Urine Blood NEGATIVE (NEGATIVE) 03/07/18 08:10 Urine Nitrate NEGATIVE (NEGATIVE) 03/07/18 08:10 Urine Bilirubin NEGATIVE (NEGATIVE) 03/07/18 08:10 Urine Urobilinogen 0.2 E.U./dL (0.2 - 1.0) 03/07/18 08:10 Ur Leukocyte Esterase NEGATIVE (NEGATIVE) 03/07/18 08:10 Urine RBC 0-2 /hpf (0-5) 03/03/18 16:00 Urine WBC 2-5 /hpf (0-5) 03/03/18 16:00 Ur Epithelial Cells FEW /lpf (FEW) 03/03/18 16:00 Urine Bacteria 3+ /hpf (NONE SEEN) H 03/03/18 16:00 Random Vancomycin 19.9 ug/mL (5.0-40.0) 03/09/18 04:25 - Physical Exam Vitals and I&O: Vital Signs Temp 97.7 F 03/09/18 07:58 Pulse 103 03/09/18 10:42 Resp 20 03/09/18 10:42 BP 112/61 03/09/18 08:56 Pulse Ox 98 03/09/18 10:42 Intake & Output 03/08/18 03/09/18 03/09/18 18:59 06:59 18:59 Intake Total 500 1650 300 Balance 500 1650 300 Weight (lbs) 103.873 kg 103.873 kg Intake: Intake, IV Amount 500 Vancomycin HCl 1.5 gm In 500 Sodium Chloride 0.9% 500 ml @ 250 mls/hr IV Q24H [facility] Rx#:[id number] Oral 1650 300 Other: # Voids 3 3 # Bowel Movements 0 0 Stool Characteristics Soft Formed Weight Source Bedscale Bedscale Active Medications: Current Medications Acetaminophen (Tylenol Extra Strength) 1,000 mg PO Q6HR PRN PRN Reason: Pain or Fever >101 Stop: 05/02/18 15:49 Last Admin: 03/08/18 22:09 Dose: 1,000 mg Al Hydrox/Mg Hydrox/Simethicone (Maalox) 30 ml PO Q4HR PRN PRN Reason: stomach upset Stop: 05/08/18 08:59 Last Admin: 03/09/18 09:14 Dose: 30 ml Albuterol/Ipratropium (Duoneb Neb) 3 ml HHN Q4HRT AYLEEN Stop: 05/05/18 10:59 Last Admin: 03/09/18 10:42 Dose: 3 ml Budesonide (Pulmicort) 0.5 mg HHN BIDRT AYLEEN Stop: 05/05/18 18:59 Last Admin: 03/09/18 06:37 Dose: 0.5 mg [place] Oil/[place] Balsam/Trypsin (Venelex) 1 appl TP DAILY AYLEEN Stop: 05/03/18 15:59 Last Admin: 03/09/18 09:12 Dose: 1 appl Diltiazem HCl (Cardizem Cd) 240 mg PO DAILY AYLEEN Stop: 05/03/18 08:59 Last Admin: 03/09/18 08:56 Dose: 240 mg Furosemide (Lasix) 40 mg PO DAILY AYLEEN Stop: 03/10/18 08:59 Last Admin: 03/09/18 08:56 Dose: 40 mg Ceftriaxone Sodium 1 gm/ (Sodium Chloride) 50 mls @ 100 mls/hr IV Q24HR AYLEEN Stop: 05/02/18 16:59 Last Admin: 03/08/18 17:09 Dose: 100 mls/hr Dextrose/Sodium Chloride (D5-0.45ns) 1,000 mls @ 10 mls/hr IV .Q24H AYLEEN Stop: 05/03/18 11:29 Vancomycin HCl 1.5 gm/ Sodium (Chloride) 500 mls @ 250 mls/hr IV Q24H AYLEEN Stop: 05/07/18 08:59 Last Admin: 03/09/18 08:57 Dose: 250 mls/hr Lactic Acid (Lac-Hydrin Cream) 1 appl TP BID AYLEEN Stop: 05/03/18 08:59 Last Admin: 03/09/18 09:12 Dose: 1 appl Methylprednisolone Sodium Succinate (Solu-Medrol) 40 mg IVP Q12HR AYLEEN Stop: 05/07/18 20:59 Last Admin: 03/09/18 08:56 Dose: 40 mg Miscellaneous (Vancomycin Iv Per Pharmacy) 1 ea MC PRN AYLEEN Stop: 05/05/18 02:44 Morphine Sulfate (Morphine) 1 mg IVP Q4HR PRN PRN Reason: Pain (Severe) 8-10 Stop: 05/02/18 17:32 Last Admin: 03/08/18 15:49 Dose: 1 mg General: no acute distress, well developed, well nourished HEENT: atraumatic, normocephalic, PERRLA, EOMI Neck: supple, no thyromegaly Cardiovascular: S1S2, regular Lungs: clear to auscultation bilaterally, clear to percussion Abdomen: soft, no tender, no distended Extremities: edema, other (redness is better), no cyanosis, no clubbing Neurological: awake, alert Skin: intact Infectious Disease Assmt/Plan - Assessment Assessment: 1. Right leg cellulitis. 2. Left leg cellulitis. 3. Left leg wound. 4. Dry skin, dermatitis. 5.. Leukocytosis. likely due to steroids. 6. Urinary tract infection. 7. Hypokalemia. 8. Chronic kidney disease, stage 4. 9. Obesity, she has sleep apnea. 10. Chronic obstructive pulmonary disease, asthma. 11. Hypertension. 12. Dyslipidemia. 13. Dementia. 14. Anemia. 15. Lymphedema of both lower extremities. - Plan Plan: continue vanco IV and Rocephin at this time. Apply Lac-Hydrin ointment to both lower extremities. Nutritional Asmnt/Malnutr-PDOC - Dietary Evaluation Malnutrition Findings (Please click <Entered> for more info): Nutritional Asmnt/Malnutrition Start: 03/04/18 14: 11 Text: Status: Complete Freq: Protocol: Document 03/04/18 14:11 SARAI (Rec: 03/04/18 14:51 SARAI FREEMAN-SONG) Nutritional Asmnt/Malnutrition Patient General Information Nutritional Screening High Risk Diagnosis cellulitis, sepsis Pertinent Medical Hx/Surgical Hx HTN, asthma/COPD, dyslipidemia , ESRD, dementia Subjective Information Consult received for BLE venous insufficiency ulcers. Pt was eating lunch after receiving treatment from RN at time of visit. Pt's alert/ oriented and states her food is good w/ no specific preferences. Nursing noted PO intake: 75-100%. Current Diet Order/ Nutrition Support regular Pertinent Medications D5-0.45ns, cardizem Cd, morphine Pertinent Labs 03/04: Na 137, K 3.0, Cl 96, BUN 55, Cr 2.2, glucose 115 03/03: Na 135, K 2.7, Cl 91, BUN 57, Cr 2.3, glucose 93 Nutritional Hx/Data Height 1.52 m Height (Calculated Centimeters) 152.4 Current Weight (lbs) 103.873 kg Weight (Calculated Kilograms) 103.9 Weight (Calculated Grams) 264438.7 [place] Body Weight 100 lb Body Mass Index (BMI) 44.7 Weight Status Morbidly Obese GI Symptoms GI Symptoms None Last BM 03/03 Difficult in: None Food Allergies No Skin Integrity/Comment: cellulitis and non-pitting 2+ edema of bilateral lower extremities, [place] 15 Current %PO Good (75-100%) Estimated Nutritional Goals BEE in Kcals: Adj wt of IBW Calories/Kcals/Kg 25-30 (based on adj wt 60 kg) Kcals Calculated [id number] Protein: Adj wt of IBW Protein g/k.0 (based on adj wt 60 kg) monitor renal labs Protein Calculated 60 g Fluid: ml [id number] (1 ml/kcal) Nutritional Problem 1. Problem Problem Altered nutrition related lab values Etiology renal dysfunction, electrolyte imbalance Signs/Symptoms: K 3.0, Cl 96, BUN 55, Cr 2.2 Intervention/Recommendation Comments 1. Continue with regular diet as ordered and limit protein to 60 g per day d/t elevated BUN/Cr and hx of ESRD by reducing portions of meat at all meals by half 2. Consider starting low Na 2 gm diet if edema continues to be present 3. Monitor PO intake, wt, labs and skin integrity 4. F/U as moderate risk in 3-5 days, 03/07- Expected Outcomes/Goals Expected Outcomes/Goals 1. PO intake to continue meeting at least 75% of all meals 2. Wt stability, skin to remain intact, and nutrition related labs to approach normal limits Reviwed by Anay Sena RD
[2018-03-09] MEDS: Morphine Sulfate 2 mg/mL 1mL Syr IVP PRN (15:34)
[2018-03-09] MEDS: Acetaminophen 500 MG TAB PO PRN (15:38)
[2018-03-09] MEDS: cefTRIAXone 1 GM in Sodium Chloride 0.9% 50 ML IV SCH (16:19)
== END 2018-03-09 18:30 | DRG 872 ==
LOC: ER 10:34 → TELE 14:05
PROVIDERS: ADMIT Internal Medicine; ATTEND Internal Medicine
DX: A41.9 Sepsis, unspecified organism (principal); L03.116 Cellulitis of left lower limb; L03.115 Cellulitis of right lower limb; N39.0 Urinary tract infection, site not specified; N18.4 Chronic kidney disease, stage 4 (severe); Z68.42 Body mass index [BMI] 45.0-49.9, adult; E87.6 Hypokalemia; J44.9 Chronic obstructive pulmonary disease, unspecified; G47.30 Sleep apnea, unspecified; E78.5 Hyperlipidemia, unspecified; F03.90 Unspecified dementia, unspecified severity, without behavioral disturbance, psychotic disturbance, mood disturbance, and anxiety; S81.802A Unspecified open wound, left lower leg, initial encounter; I12.9 Hypertensive chronic kidney disease with stage 1 through stage 4 chronic kidney disease, or unspecified chronic kidney disease; E66.9 Obesity, unspecified; L85.3 Xerosis cutis; I89.0 Lymphedema, not elsewhere classified; D64.9 Anemia, unspecified; L89.892 Pressure ulcer of other site, stage 2; F17.210 Nicotine dependence, cigarettes, uncomplicated; Z82.49 Family history of ischemic heart disease and other diseases of the circulatory system
CPT/HCPCS: 36415-UA; 36600-90; 71045-TC; 76700-TC; 76770-TC; 76856-TC; 80048-TC; 80053-TC; 80061-TC; 80202-TC; 81001-TC; 81003-TC; 82550-TC; 82728-90; 82803-TC; 83036-90; 83540-90; 83550-90; 83605; 83735-TC; 84484-TC; 85007-TC; 85025-TC; 85610-TC; 85730-TC; 87086-90; 93005; 93925-TC; 93970-TC-50; 94640; 94760; 96375; J0696; J1885; J2270; J2920; J2930; J3370; J7030; J7040; Z7610